=== PATIENT | female | born 1950 | race African-American/Black ===

== ENCOUNTER 2017-09-11 12:00 | Emergency (ER) | payer MEDICARE ==
[~2017-09-11] VITALS: Ht 154.9 cm; Wt 45.4 kg
[2017-09-11] MEDS ORDERED: ONDANSETRON PF 4 MG/2 ML VIAL. IV ONE (12:30)
[2017-09-11] MEDS ORDERED: fentaNYL PF VIAL 100 MCG/2 ML VIAL IV PRN (12:30)
[2017-09-11] MEDS ORDERED: IV NORMAL SALINE 500ML BAG 500 ML IV ONE (12:30)
--- NOTE | 2017-09-11 12:34 | PHYS DOC ---
Past Medical History Past Medical History: Asthma, GERD, Other Additional Past Medical Histor: muscle pain, interstitial cystitis Past Surgical History: Hysterectomy, Tubal ligation, Other Additional Past Surgical Histo: rectocele, "bladder stretched" Alcohol Use: Heavy Drug Use: None Adult General Chief Complaint Chief Complaint: ABDOMINAL PAIN HPI HPI Patient is a 67 year old female who presents with abdominal pain. The patient reports 5 day history of generalized cramping abdominal pain worst in lower quadrants. She reports associated frequent loose stools, nausea, belching, dysuria. Denies fevers/chills, hematemesis, hematochezia/melena, hematuria. She denies previous history of similar symptoms. History of prior surgery for rectocele repair. Also has history of GERD & interstitial cystitis. PCP is Dr. Carney. Review of Systems Review of Systems Constitutional: Denies fever or chills Eyes: Denies change in visual acuity HENT: Denies nasal congestion or sore throat Respiratory: Denies cough or shortness of breath Cardiovascular: Denies chest pain or edema GI: Reports abdominal pain, nausea, and diarrhea, denies vomiting, bloody stools : [place] dysuria, denies hematuria Musculoskeletal: Denies back pain or joint pain Integument: Denies rash or skin lesions Neurologic: Denies headache, focal weakness or sensory changes All other systems were reviewed and found to be within normal limits, except as documented in this note. Current Medications Current Medications Current Medications Medications (Trade) Dose Ordered Sig/Mikie Start Time Stop Time Status Last Admin Dose Admin Fentanyl Citrate (Fentanyl 2ml Vial) 25 mcg PRN Q15MIN PRN 09/11/17 12:30 09/11/17 14:54 DC Info (Do NOT chart on this entry -- for MONITORING) 1 each PRN DAILY PRN 09/11/17 13:45 09/11/17 14:54 DC Iohexol (Omnipaque 300 Mg/ml) 75 ml 1X ONCE 09/11/17 13:45 09/11/17 13:46 DC 09/11/17 13:43 75 ML Ketorolac Tromethamine (Toradol) 15 mg 1X ONCE 09/11/17 14:00 09/11/17 14:01 DC 09/11/17 13:52 15 MG Ondansetron HCl (Zofran) 4 mg 1X ONCE 09/11/17 12:30 09/11/17 12:45 DC 09/11/17 12:48 4 MG Sodium Chloride 500 ml @ 0 mls/hr 1X ONCE 09/11/17 12:30 09/11/17 12:45 DC 09/11/17 12:49 500 MLS/HR Allergies Allergies Allergies Coded Allergies Type Severity Reaction Last Updated Verified levofloxacin Allergy Intermediate Nausea and Vomiting 09/11/17 Yes Physical Exam Physical Exam Constitutional: Well developed, well nourished, no acute distress, non-toxic appearance. HENT: Normocephalic, atraumatic, bilateral external ears normal, oropharynx moist, nose normal. Eyes: PERRLA, EOMI, conjunctiva normal, no discharge. Neck: supple, no stridor. Cardiovascular: RRR, no murmurs, no edema. Lungs & Thorax: LCTAB, no wheezing, no respiratory distress. Abdomen: soft, moderate generalized tenderness greatest in RLQ & LLQ, no rebound /guarding, no masses or pulsatile masses, nondistended. Skin: Warm, dry, no erythema, no rash. Back: No CVA tenderness. Extremities: No tenderness, no edema. Neurologic: Alert and oriented X 3, no focal deficits noted. Psychologic: Affect normal, judgement normal, mood normal. Current Patient Data Vital Signs Vital Signs Date Time Temp Pulse Resp B/P (MAP) Pulse Ox O2 Delivery O2 Flow Rate FiO2 09/11/17 14:20 62 16 116/66 (83) 100 Room Air 09/11/17 12:20 98.7 98.7 Lab Values Laboratory Tests Test 09/11/17 12:35 White Blood Count 3.7 x10^3/uL (4.0-11.0) L Red Blood Count 4.31 x10^6/uL (3.50-5.40) Hemoglobin 11.8 g/dL (12.0-15.5) L Hematocrit 37.6 % (36.0-47.0) Mean Corpuscular Volume 87 fL (79-100) Mean Corpuscular Hemoglobin 27 pg (25-35) Mean Corpuscular Hemoglobin Concent 31 g/dL (31-37) Red Cell Distribution Width 14.2 % (11.5-14.5) Platelet Count 204 x10^3/uL (140-400) Neutrophils (%) (Auto) 52 % (31-73) Lymphocytes (%) (Auto) 37 % (24-48) Monocytes (%) (Auto) 9 % (0-9) Eosinophils (%) (Auto) 1 % (0-3) Basophils (%) (Auto) 1 % (0-3) Neutrophils # (Auto) 1.9 x10^3uL (1.8-7.7) Lymphocytes # (Auto) 1.4 x10^3/uL (1.0-4.8) Monocytes # (Auto) 0.3 x10^3/uL (0.0-1.1) Eosinophils # (Auto) 0.0 x10^3/uL (0.0-0.7) Basophils # (Auto) 0.0 x10^3/uL (0.0-0.2) Urine Collection Type Unknown Urine Color Zora Urine Clarity Clear Urine pH 6.5 Urine Specific [place] 1.015 Urine Protein Negative mg/dL (NEG-TRACE) Urine Glucose (UA) Negative mg/dL (NEG) Urine Ketones (Stick) Negative mg/dL (NEG) Urine Blood Negative (NEG) Urine Nitrite Negative (NEG) Urine Bilirubin Negative (NEG) Urine Urobilinogen Dipstick 0.2 mg/dL (0.2 mg/dL) Urine Leukocyte Esterase Trace (NEG) Urine RBC 0 /HPF (0-2) Urine WBC 0 /HPF (0-4) Urine Squamous Epithelial Cells Few /LPF Urine Bacteria 0 /HPF (0-FEW) Urine Mucus Slight /LPF Sodium Level 143 mmol/L (136-145) Potassium Level 4.1 mmol/L (3.5-5.1) Chloride Level 106 mmol/L (98-107) Carbon Dioxide Level 27 mmol/L (21-32) Anion Gap 10 (6-14) Blood Urea Nitrogen 10 mg/dL (7-20) Creatinine 0.7 mg/dL (0.6-1.0) Estimated GFR (Cockcroft-Gault) 84.0 BUN/Creatinine Ratio 14 (6-20) Glucose Level 102 mg/dL (70-99) H Lactic Acid Level 1.8 mmol/L (0.4-2.0) Calcium Level 8.8 mg/dL (8.5-10.1) Magnesium Level 1.8 mg/dL (1.8-2.4) Total Bilirubin 0.2 mg/dL (0.2-1.0) Aspartate Amino Transferase (AST) 18 U/L (15-37) Alanine Aminotransferase (ALT) 16 U/L (14-59) Alkaline Phosphatase 50 U/L (46-116) Troponin I Quantitative < 0.017 ng/mL (0.000-0.055) Total Protein 6.9 g/dL (6.4-8.2) Albumin 3.4 g/dL (3.4-5.0) Albumin/Globulin Ratio 1.0 (1.0-1.7) Lipase 136 U/L (73-393) Laboratory Tests 09/11/17 12:35 Laboratory Tests 09/11/17 12:35 EKG EKG interpreted by me: NSR rate 67, no acute St/T wave changes, normal intervals, no ectopy.[] Radiology/Procedures Radiology/Procedures PROCEDURE: CT ABD PELV W/ IV CONTRST ONLY EXAM: CT abdomen/pelvis with contrast. HISTORY: Abdominal pain and diarrhea. TECHNIQUE: Computed tomography of the abdomen and pelvis was performed after the intravenous administration of 75 mL Omnipaque 300. COMPARISON: 11/25/2007. FINDINGS: Lung windows through the visualized portions of the bases reveal mild atelectasis. Bone windows reveal no suspicious lesions. The lack of oral contrast and minimal intra-abdominal fat limits assessment of the small and large bowel. Wall thickening is suspected along the sigmoid colon suggesting colitis. More proximally, stool throughout the colon suggests mild constipation. No definitive small bowel wall thickening is seen. The liver, gallbladder, pancreas, kidneys and adrenal glands are unremarkable. There is a calcified granuloma in the spleen. There are no pathologically enlarged lymph nodes. The uterus appears surgically absent. IMPRESSION: 1. Limited assessment of the bowel in the absence of oral contrast and cachexia. Sigmoid colonic wall thickening is suspected. Correlate for colitis. Also correlate with current colonoscopic results to exclude a mass. *One or more of the following individualized dose reduction techniques were utilized for this examination: 1. Automated exposure control. 2. Adjustment of the mA and/or kV according to patient size. 3. Use of iterative reconstruction technique. DICTATED and SIGNED BY: JEANNE PARDO MD DATE: 09/11/17 4009[] Course & Med Decision Making Course & Med Decision Making Pertinent Labs and Imaging studies reviewed. (See chart for details) The patient presents with abdominal pain. Gave IV fluids, Zofran, pain medication. She felt better after treatment here. Labs as above without significant abnormality. CT showed thickening of the wall of the colon. She felt better and requested discharge home. Recommend rest, by mouth hydration with small sips of clear liquid, Zofran as needed for nausea, prescription for Bactrim and Flagyl for possible infectious colitis. Follow-up with primary care or GI in 2-3 days. Return to the emergency department for high fever, severe pain, uncontrolled vomiting, any otherwise worsening condition. Discharged home in stable condition. [] Dragon Disclaimer Dragon Disclaimer This electronic medical record was generated, in whole or in part, using a voice recognition dictation system. Departure Departure Impression: Primary Impression: Abdominal pain Disposition: HOME, SELF-CARE Condition: STABLE Referrals: LIANG CARNEY MD (PCP) Patient Instructions: Colitis Additional Instructions: You were seen in the emergency department today for abdominal pain. Your CT showed inflammation/infection of the colon. Please rest, drink fluids to stay hydrated, use zofran for nausea. Take prescribed antibiotics. Follow up with a primary care physician or GI doctor in 2-3 days. Come back for high fever, severe pain, uncontrolled vomiting, any otherwise worsening condition. Scripts Ondansetron (ZOFRAN ODT) 4 Mg Tab.rapdis 1 TAB SL Q8HRS Y for NAUSEA/VOMITING, #10 TAB Prov: EUSEBIO MARK MD 09/11/17 Metronidazole (FLAGYL) 500 Mg Tablet 1 TAB PO TID for 7 Days, #21 TAB Prov: EUSEBIO MARK MD 09/11/17 Sulfamethoxazole/Trimethoprim (BACTRIM DS TABLET) 1 Each Tablet 1 TAB PO BID, #14 TAB Prov: EUSEBIO MARK MD 09/11/17 EUSEBIO MARK MD Sep 11, 2017 12:34
[2017-09-11 12:48] LABS: BILIRUBIN,URINE NEGATIVE (NEG); GLUCOSE,URINE NEGATIVE (NEG); NITRITE,URINE NEGATIVE (NEG); PH,URINE 6.5; PROTEIN,URINE NEGATIVE (NEG-TRACE); UROBILINOGEN,URINE 0.2 mg/dL (0.2 mg/dL)
[2017-09-11 12:57] LABS: BACTERIA,URINE 0 /HPF (0-FEW); RBC,URINE 0 /HPF (0-2); SQUAMOUS EPITHELIAL CELL,UR FEW /LPF; WBC,URINE 0 /HPF (0-4)
[2017-09-11 13:03] LABS: BASO % 1 % (0-3); EOS % 1 % (0-3); HEMATOCRIT 37.6 % (36.0-47.0); HEMOGLOBIN 11.8 g/dL (12.0-15.5); LYMPH # 1.4 x10^3/uL (1.0-4.8); LYMPH % 37 % (24-48); MEAN CORPUSCULAR HEMOGLOBIN 27 pg (25-35); MEAN CORPUSCULAR HGB CONC 31 g/dL (31-37); MEAN CORPUSCULAR VOLUME 87 fL (79-100); MONO % 9 % (0-9); NEUT % 52 % (31-73); PLATELET COUNT 204 x10^3/uL (140-400); RED BLOOD COUNT 4.31 x10^6/uL (3.50-5.40); RED CELL DISTRIBUTION WIDTH 14.2 % (11.5-14.5); WHITE BLOOD COUNT 3.7 x10^3/uL (4.0-11.0)
[2017-09-11 13:09] LABS: CALCIUM 8.8 mg/dL (8.5-10.1); CREATININE 0.7 mg/dL (0.6-1.0); POTASSIUM 4.1 mmol/L (3.5-5.1)
[2017-09-11 13:21] LABS: ALBUMIN 3.4 g/dL (3.4-5.0); MAGNESIUM 1.8 mg/dL (1.8-2.4); TOTAL BILIRUBIN 0.2 mg/dL (0.2-1.0); TOTAL PROTEIN 6.9 g/dL (6.4-8.2)
[2017-09-11] MEDS ORDERED: IOHEXOL 300 MG/ML 100ML VIAL. IV ONE (13:45)
[2017-09-11] MEDS ORDERED: CONTRAST GIVEN MC PRN (13:45)
[2017-09-11] MEDS ORDERED: KETOROLAC 30 MG/ML INJ. IV ONE (14:00)
--- NOTE | 2017-09-11 14:03 | EKG ---
[facility] [address] [place] [address] Test Date: 2017-09-11 Test Time: 12:36:52 Pat Name: MICHA AUGUSTE Department: Room: Gender: F Superintendent [place]: 0 : 1950 Requested By: EUSEBIO MARK Order Number: [id number] Reading MD: Vadim Schmitz MD Measurements Intervals [place] Rate: 66 P: 68 MI: 160 QRS: 33 QRSD: 66 T: 42 QT: 408 QTc: 434 Interpretive Statements SINUS RHYTHM LOW LIMB LEAD VOLTAGE NON-SPECIFIC ST/T CHANGES Electronically Signed On 09-15-2017 10:42:41 BRAND RECORDER by Vadim Schmitz MD
--- NOTE | 2017-09-11 14:18 | RAD ---
EXAM: CT abdomen/pelvis with contrast. HISTORY: Abdominal pain and diarrhea. TECHNIQUE: Computed tomography of the abdomen and pelvis was performed after the intravenous administration of 75 mL Omnipaque 300. COMPARISON: 11/25/2007. FINDINGS: Lung windows through the visualized portions of the bases reveal mild atelectasis. Bone windows reveal no suspicious lesions. The lack of oral contrast and minimal intra-abdominal fat limits assessment of the small and large bowel. Wall thickening is suspected along the sigmoid colon suggesting colitis. More proximally, stool throughout the colon suggests mild constipation. No definitive small bowel wall thickening is seen. The liver, gallbladder, pancreas, kidneys and adrenal glands are unremarkable. There is a calcified granuloma in the spleen. There are no pathologically enlarged lymph nodes. The uterus appears surgically absent. IMPRESSION: 1. Limited assessment of the bowel in the absence of oral contrast and cachexia. Sigmoid colonic wall thickening is suspected. Correlate for colitis. Also correlate with current colonoscopic results to exclude a mass. *One or more of the following individualized dose reduction techniques were utilized for this examination: 1. Automated exposure control. 2. Adjustment of the mA and/or kV according to patient size. 3. Use of iterative reconstruction technique.
[2017-09-11 14:20] VITALS: BP 116/66
[2017-09-11] MEDS ORDERED: METR500T PO (14:38)
[2017-09-11] MEDS ORDERED: SULF1TAB24 PO (14:38)
[2017-09-11] MEDS ORDERED: ONDA4TAB10 SL (14:38)
== END 2017-09-11 14:43 | disposition home or self-care (01) ==
LOC: ER 12:00
DX: R10.31 Right lower quadrant pain (principal); R10.32 Left lower quadrant pain; K21.9 Gastro-esophageal reflux disease without esophagitis; J45.909 Unspecified asthma, uncomplicated; Z98.51 Tubal ligation status; Z90.710 Acquired absence of both cervix and uterus; Z88.1 Allergy status to other antibiotic agents
CPT/HCPCS: 36415; 74177; 80053; 81001; 83605; 83690; 83735; 84484; 85025; 87086; 93005; 96361; 96374; 96375; 99285; J1885; J2405; J7040; Q9967

== ENCOUNTER 2017-09-17 19:31 | Inpatient (IN) | payer MEDICARE ==
[~2017-09-17] VITALS: Ht 154.9 cm; Wt 42.6 kg
[~2017-09-17 19:31] MED LIST: METR500T PO; ONDA4TAB10 SL; SULF1TAB24 PO
[2017-09-17 20:26] LABS: BASO % 1 % (0-3); EOS % 1 % (0-3); HEMATOCRIT 35.3 % (36.0-47.0); HEMOGLOBIN 11.1 g/dL (12.0-15.5); LYMPH # 1.7 x10^3/uL (1.0-4.8); LYMPH % 42 % (24-48); MEAN CORPUSCULAR HEMOGLOBIN 27 pg (25-35); MEAN CORPUSCULAR HGB CONC 32 g/dL (31-37); MEAN CORPUSCULAR VOLUME 87 fL (79-100); MONO % 8 % (0-9); NEUT % 49 % (31-73); PLATELET COUNT 206 x10^3/uL (140-400); RED BLOOD COUNT 4.06 x10^6/uL (3.50-5.40)
[2017-09-17 20:27] LABS: BILIRUBIN,URINE NEGATIVE (NEG); GLUCOSE,URINE NEGATIVE (NEG); NITRITE,URINE POSITIVE (NEG); PH,URINE 6.5; PROTEIN,URINE NEGATIVE (NEG-TRACE); UROBILINOGEN,URINE 0.2 mg/dL (0.2 mg/dL)
[2017-09-17 20:33] LABS: BACTERIA,URINE FEW /HPF (0-FEW); RBC,URINE OCC /HPF (0-2); SQUAMOUS EPITHELIAL CELL,UR FEW /LPF; WBC,URINE OCC /HPF (0-4)
[2017-09-17 20:40] LABS: CREATININE 0.8 mg/dL (0.6-1.0); GFR 87.1; POTASSIUM 3.8 mmol/L (3.5-5.1)
[2017-09-17 20:51] LABS: ALBUMIN 3.6 g/dL (3.4-5.0); ALBUMIN/GLOBULIN RATIO 0.9 (1.0-1.7); TOTAL BILIRUBIN 0.3 mg/dL (0.2-1.0); TOTAL PROTEIN 7.4 g/dL (6.4-8.2)
--- NOTE | 2017-09-17 20:56 | PHYS DOC ---
Past Medical History Past Medical History: Asthma, GERD, Other Additional Past Medical Histor: muscle pain, interstitial cystitis Past Surgical History: Hysterectomy, Tubal ligation, Other Additional Past Surgical Histo: rectocele, "bladder stretched" Alcohol Use: Heavy Drug Use: None Adult General Chief Complaint Chief Complaint: ABDOMINAL PAIN HPI HPI Patient is a 67 year old F who presents with right lower quadrant abdominal pain. Patient was seen last for somewhere symptoms had a full workup done including a CT scan and everything was unremarkable and was discharged home. Patient followed up with her family doctor today and he felt the patient had rebound tenderness to the right lower quadrant and wanted the patient reevaluated and wanted the patient have another CT scan of the abdomen and pelvis to rule out appendicitis. Patient denies any fevers. Patient has nausea with no vomiting. Patient does have dysuria. Patient has no other symptoms. Review of Systems Review of Systems GEN: Denies fevers, chills, sweats HEENT: Denies blurred vision, sore throat CV: Denies chest pain RESP: Denies shortness of air, cough GI: Right lower quadrant abdominal pain NEURO: Denies confusion, dizziness MSK: Denies weakness, joint pain/swelling All other systems were reviewed and found to be within normal limits, except as documented in this note. Current Medications Current Medications Current Medications Medications (Trade) Dose Ordered Sig/Mikie Start Time Stop Time Status Last Admin Dose Admin Info (Do NOT chart on this entry -- for MONITORING) 1 each PRN DAILY PRN 09/17/17 21:00 09/19/17 20:59 Iohexol (Omnipaque 300 Mg/ml) 75 ml 1X ONCE 09/17/17 21:00 09/17/17 21:01 DC 09/17/17 21:14 75 ML Allergies Allergies Allergies Coded Allergies Type Severity Reaction Last Updated Verified levofloxacin Allergy Intermediate Nausea and Vomiting 09/11/17 Yes Physical Exam Physical Exam GEN.: No apparent distress. Alert and oriented. HEENT: Head is normocephalic, atraumatic NECK: Supple. LUNGS: CTAB. HEART: RRR, S1, S2 present. Peripheral pulses intact ABDOMEN: Soft, right lower quadrant tenderness to palpation, with rebound tenderness, voluntary guarding, no abdominal distention. Positive bowel sounds. EXTREMITIES: Without any cyanosis. NEUROLOGIC: Normal speech, normal tone PSYCHIATRIC: Normal affect, normal mood. SKIN: No ulcerations Current Patient Data Vital Signs Vital Signs Date Time Temp Pulse Resp B/P (MAP) Pulse Ox O2 Delivery O2 Flow Rate FiO2 09/17/17 20:00 98.4 66 16 103/58 (73) 97 Room Air 98.4 Lab Values Laboratory Tests Test 09/17/17 19:41 09/17/17 19:58 Urine Collection Type Unknown Urine Color Zora Urine Clarity Clear Urine pH 6.5 Urine Specific [place] 1.010 Urine Protein Negative mg/dL (NEG-TRACE) Urine Glucose (UA) Negative mg/dL (NEG) Urine Ketones (Stick) Negative mg/dL (NEG) Urine Blood Negative (NEG) Urine Nitrite Positive (NEG) Urine Bilirubin Negative (NEG) Urine Urobilinogen Dipstick 0.2 mg/dL (0.2 mg/dL) Urine Leukocyte Esterase Negative (NEG) Urine RBC Occ /HPF (0-2) Urine WBC Occ /HPF (0-4) Urine Squamous Epithelial Cells Few /LPF Urine Bacteria Few /HPF (0-FEW) Urine Mucus Slight /LPF White Blood Count 4.0 x10^3/uL (4.0-11.0) Red Blood Count 4.06 x10^6/uL (3.50-5.40) Hemoglobin 11.1 g/dL (12.0-15.5) L Hematocrit 35.3 % (36.0-47.0) L Mean Corpuscular Volume 87 fL (79-100) Mean Corpuscular Hemoglobin 27 pg (25-35) Mean Corpuscular Hemoglobin Concent 32 g/dL (31-37) Red Cell Distribution Width 14.0 % (11.5-14.5) Platelet Count 206 x10^3/uL (140-400) Neutrophils (%) (Auto) 49 % (31-73) Lymphocytes (%) (Auto) 42 % (24-48) Monocytes (%) (Auto) 8 % (0-9) Eosinophils (%) (Auto) 1 % (0-3) Basophils (%) (Auto) 1 % (0-3) Neutrophils # (Auto) 2.0 x10^3uL (1.8-7.7) Lymphocytes # (Auto) 1.7 x10^3/uL (1.0-4.8) Monocytes # (Auto) 0.3 x10^3/uL (0.0-1.1) Eosinophils # (Auto) 0.1 x10^3/uL (0.0-0.7) Basophils # (Auto) 0.0 x10^3/uL (0.0-0.2) Sodium Level 140 mmol/L (136-145) Potassium Level 3.8 mmol/L (3.5-5.1) Chloride Level 104 mmol/L (98-107) Carbon Dioxide Level 30 mmol/L (21-32) Anion Gap 6 (6-14) Blood Urea Nitrogen 15 mg/dL (7-20) Creatinine 0.8 mg/dL (0.6-1.0) Estimated GFR (Cockcroft-Gault) 87.1 BUN/Creatinine Ratio 19 (6-20) Glucose Level 91 mg/dL (70-99) Lactic Acid Level 0.9 mmol/L (0.4-2.0) Calcium Level 9.0 mg/dL (8.5-10.1) Total Bilirubin 0.3 mg/dL (0.2-1.0) Aspartate Amino Transferase (AST) 22 U/L (15-37) Alanine Aminotransferase (ALT) 26 U/L (14-59) Alkaline Phosphatase 46 U/L (46-116) Total Protein 7.4 g/dL (6.4-8.2) Albumin 3.6 g/dL (3.4-5.0) Albumin/Globulin Ratio 0.9 (1.0-1.7) L Lipase 150 U/L (73-393) Laboratory Tests 09/17/17 19:58 Laboratory Tests 09/17/17 19:58 EKG EKG [] Radiology/Procedures Radiology/Procedures CT scan abdomen pelvis: IMPRESSION: 1. No acute abnormality of abdomen or pelvis. The appendix is partially visualized. No inflammatory changes in the right lower quadrant. 2. Trace amount of free pelvic fluid, nonspecific. 3. Status post hysterectomy. [] Course & Med Decision Making Course & Med Decision Making Pertinent Labs and Imaging studies reviewed. (See chart for details) ED course: Prior to patient's arrival in the emergency room received a phone call from patient's fish header Dr. Patel who is concerned that after evaluating her today she had increasing right lower quadrant tenderness with rebound tenderness and was concerned for acute appendicitis. Patient was seen and examined emergency room abdominal workup was ordered along with a CT of the abdomen and pelvis with contrast 1929: called back and updated on the patient, updated him on results of blood work and physical exam findings and awaiting CT. He stressed he wanted the patient admitted to rule out appendicitis and did not fill the patient could go home with his persistent abdominal pain. 2149: Updated patient on CT findings and UA results and reexamine. Patient still having significant right lower quadrant pain will admit for further evaluation and management 2205: Discussed CC/HP/PMH with Dr. MCGARRY and recommends admit surgery on consult MDM: After reviewing the chart, CC/HPI/PMH, physical exam, [lab results], [ radiological results], I do not believe the patient has a intra-abdominal emergency warranting emergent surgery at this time however since the patient's having intractable right lower quadrant pain and is seen twice in the emergency room and followed up with her fish header we will admit for further evaluation and management. Patient does have a UTI will start IV ecchymotic. [] Dragon Disclaimer Dragon Disclaimer This electronic medical record was generated, in whole or in part, using a voice recognition dictation system. Departure Departure Impression: Primary Impression: UTI (urinary tract infection) Additional Impression: Intractable abdominal pain Disposition: ADMITTED INPATIENT Admitting Physician: Terrell Mcgarry Condition: STABLE Referrals: LIANG CARNEY MD (PCP) Problem Qualifiers KATARINA LORD DO Sep 17, 2017 20:56
[2017-09-17] MEDS ORDERED: CONTRAST GIVEN MC PRN (21:00)
[2017-09-17] MEDS ORDERED: IOHEXOL 300 MG/ML 100ML VIAL. IV ONE (21:00)
--- NOTE | 2017-09-17 21:35 | RAD ---
CT ABD PELV W/ IV CONTRST ONLY dated 09/17/2017 9:13 PM Indication: Pain, right lower quadrantsevere RLQ pain, [id number] 75ml, prior sent from last week. Comparison: 09/11/2017 Technique: Contiguous axial imaging of the abdomen and pelvis performed after the administration of 75 cc Omnipaque 300. One or more of the following individualized dose reduction techniques were utilized for this examination: 1. Automated exposure control 2. Adjustment of the mA and/or kV according to patient size 3. Use of iterative reconstruction technique Findings: Limited images of lung bases are clear. Heart size within normal limits. No pleural or pericardial effusion. Liver, spleen, pancreas, adrenal glands, gallbladder and kidneys are unremarkable. No hydronephrosis. Unopacified GI tract normal in caliber and contour. No focal bowel wall thickening. The appendix is partially visualized and normal in caliber. No lymphadenopathy. Images of pelvis show nondistended urinary bladder. Uterus is surgically absent. Small amount of free pelvic fluid. No pelvic lymphadenopathy. Bone windows show no acute findings. Mild lower lumbar spondylosis. IMPRESSION: 1. No acute abnormality of abdomen or pelvis. The appendix is partially visualized. No inflammatory changes in the right lower quadrant. 2. Trace amount of free pelvic fluid, nonspecific. 3. Status post hysterectomy. Electronically signed by: Roderick Rosario MD (09/17/2017 9:32 PM) [id number]
[2017-09-17] MEDS: IV NORMAL SALINE 1000ML BAG 1,000 ML IV SCH (22:40)
[2017-09-17] MEDS: ONDANSETRON PF 4 MG/2 ML VIAL. IV PRN (22:43)
[2017-09-17] MEDS: MORPHINE SULFATE 4 MG/ML DISP.SYRIN. IV PRN (22:44)
[2017-09-18] VITALS (7 sets, daily range): BP systolic 94–127; BP diastolic 60–72
[2017-09-18] MEDS: PHENAZOPYRIDINE 200 MG TABLET. PO PRN ×2 (00:22→09:46)
[2017-09-18] MEDS ORDERED: TIZA4TAB PO (05:27)
[2017-09-18] MEDS ORDERED: POLY17PO29 PO (05:27)
[2017-09-18] MEDS ORDERED: TRAM50TA PO (05:27)
[2017-09-18] MEDS ORDERED: OMEP40CA5 PO (05:27)
[2017-09-18] MEDS ORDERED: HYOS0.3715 PO (05:27)
[2017-09-18] MEDS ORDERED: RANI300T3 PO (05:27)
[2017-09-18] MEDS ORDERED: OXYB10TA7 PO (05:27)
[2017-09-18] MEDS ORDERED: PHEN-318 PO (05:27)
[2017-09-18 05:34] LABS: BASO % 1 % (0-3); EOS % 2 % (0-3); HEMATOCRIT 33.5 % (36.0-47.0); HEMOGLOBIN 10.6 g/dL (12.0-15.5); LYMPH % 47 % (24-48); MEAN CORPUSCULAR HEMOGLOBIN 28 pg (25-35); MEAN CORPUSCULAR HGB CONC 32 g/dL (31-37); MEAN CORPUSCULAR VOLUME 87 fL (79-100); MONO % 8 % (0-9); NEUT % 43 % (31-73); PLATELET COUNT 195 x10^3/uL (140-400); RED BLOOD COUNT 3.85 x10^6/uL (3.50-5.40); RED CELL DISTRIBUTION WIDTH 13.9 % (11.5-14.5); WHITE BLOOD COUNT 4.2 x10^3/uL (4.0-11.0)
[2017-09-18 06:13] LABS: CALCIUM 8.4 mg/dL (8.5-10.1); CREATININE 0.7 mg/dL (0.6-1.0); GFR 101.6; POTASSIUM 3.9 mmol/L (3.5-5.1)
[2017-09-18] MEDS: MORPHINE SULFATE 4 MG/ML DISP.SYRIN. IV PRN (09:47)
[2017-09-18] MEDS: IV NORMAL SALINE 1000ML BAG 1,000 ML IV SCH (09:47)
[2017-09-18] MEDS: ONDANSETRON PF 4 MG/2 ML VIAL. IV PRN (09:56)
[2017-09-18] MEDS ORDERED: BISACODYL 10 MG SUPP.RECT. PR PRN (12:00)
[2017-09-18] MEDS ORDERED: POLYETHYLENE GLYCOL 3350 17 GM PACKET. PO PRN (12:00)
[2017-09-18] MEDS ORDERED: hydrALAZINE 20 MG/ML VIAL. IVP PRN (12:00)
[2017-09-18] MEDS ORDERED: traMADol 50 MG TABLET PO PRN (12:00)
[2017-09-18] MEDS ORDERED: ONDANSETRON PF 4 MG/2 ML VIAL. IV PRN (12:00)
[2017-09-18] MEDS ORDERED: MORPHINE SULFATE 4 MG/ML DISP.SYRIN. IV PRN (12:00)
[2017-09-18] MEDS ORDERED: ACETAMINOPHEN 325 MG TABLET. PO PRN (12:00)
[2017-09-18] MEDS ORDERED: LACTULOSE 20 GM/30 ML SOLUTION. PO PRN (12:00)
[2017-09-18] MEDS ORDERED: DOCUSATE SODIUM 100 MG CAPSULE. PO PRN (12:00)
--- NOTE | 2017-09-18 12:17 | PDOC2 ---
MATTEO VIZCAINO BRIDGE OPERATOR SLIP 09/18/17 1217: CONSULT Date of Consult Date of Consult DATE: 09/18/17 TIME: 12:09 Reason for Consult Reason for Consult: abdominal pain Referring Physician Referring Physician: ER Identification/Chief Complaint Chief Complaint abdominal pain Problems: Source Source: Chart review, Patient History of Present Illness Reason for Visit: Reports started last with gas pain after [place]. Then developed diarrhea for 2 days, became dehydrated--treated in ER for colitis/UTI. Developed worsening cramping lower abdominal pain. Currently still having pain , no n/v, no further diarrhea Last colonoscopy 2 years ago , normal Past Medical History Pulmonary: Asthma GI: GERD Past Surgical History Past Surgical History: Hysterectomy (partial), Other (rectocele repair) Social History No ALCOHOL: heavy Drugs: None Current Problem List Problem List Problems Medical Problems: (1) Intractable abdominal pain Status: Acute (2) UTI (urinary tract infection) Status: Acute Current Medications Current Medications Current Medications Iohexol (Omnipaque 300 Mg/ml) 75 ml 1X ONCE IV Last administered on 21:14; Start 09/17/17 at 21:00; Stop 09/17/17 at 21:01; Status DC Info (Do NOT chart on this entry -- for MONITORING) 1 each PRN DAILY PRN MC SEE COMMENTS; Start 09/17/17 at 21:00; Stop 09/19/17 at 20:59 Ceftriaxone Sodium 50 ml @ 100 mls/hr 1X ONCE IV Last administered on 22:40; Start 09/17/17 at 22:00; Stop 09/17/17 at 22:29; Status DC Ondansetron HCl (Zofran) 4 mg PRN Q8HRS PRN IV NAUSEA/VOMITING Last administered on 09/18/17 09:56; Start 09/17/17 at 22:15; Stop 09/18/17 at 22 :14 Morphine Sulfate 4 mg PRN Q2HR PRN IV PAIN Last administered on 09/18/17 09: 47; Start 09/17/17 at 22:15; Stop 09/18/17 at 22:14 Sodium Chloride 1,000 ml @ 75 mls/hr [id number] IV Last administered on 09:47; Start 09/17/17 at 22:15; Stop 09/18/17 at 22:14 Phenazopyridine HCl (Pyridium) 200 mg PRN TID PRN PO URINARY PAIN Last administered on 09/18/17t 09:46; Start 09/17/17 at 23:45 Hyoscyamine (Levbid Er) 0.1875 mg BID PO ; Start 09/18/17 at 21:00 Phenazopyridine HCl (Pyridium) 200 mg BID PO ; Start 09/18/17 at 21:00; Status UNV Polyethylene Glycol (miraLAX PACKET) 17 gm PRN DAILY PRN PO CONSTIPATION; Start 09/18/17 at 12:00 Tizanidine HCl (Zanaflex) 4 mg QID PO ; Start 09/18/17 at 13:00 Tramadol HCl (Ultram) 100 mg QID PO ; Start 09/18/17 at 13:00 Pantoprazole Sodium (Protonix) 40 mg DAILYAC PO ; Start 09/19/17 at 07:30 Non-Formulary Medication 1 tab DAILY PO ; Start 09/19/17 at 09:00; Status UNV Simethicone (Gas-X) 80 mg PRN AFTMEALHC PRN PO GAS / BLOATING; Start 09/18/17 at 12:00 Acetaminophen (Tylenol) 650 mg PRN Q6HRS PRN PO FEVER; Start 09/18/17 at 12:00 Ondansetron HCl (Zofran) 4 mg PRN Q6HRS PRN IV NAUSEA/VOMITING; Start at 12:00 Morphine Sulfate 2 mg PRN Q2HR PRN IV PAIN; Start 09/18/17 at 12:00 Tramadol HCl (Ultram) 50 mg PRN Q6HRS PRN PO PAIN; Start 09/18/17 at 12:00; Status UNV Hydralazine HCl (Apresoline Inj) 10 mg PRN Q4HRS PRN IVP ELEVATED BP, SEE COMMENTS; Start 09/18/17 at 12:00 Docusate Sodium (Colace) 100 mg PRN DAILY PRN PO CONSTIPATION; Start 09/18/17 at 12:00 Ceftriaxone Sodium 1 gm/ Dextrose 50 ml @ 100 mls/hr Q24H IV ; Start 09/18/17 at 12:00; Status UNV Senna/Docusate Sodium (Senna Plus) 1 tab BID PO ; Start 09/18/17 at 21:00 Docusate Sodium (Colace) 100 mg BID PO ; Start 09/18/17 at 21:00 Magnesium Hydroxide (Milk Of Magnesia) 2,400 mg BID PO ; Start 09/18/17 at 21: 00 Lactulose 20 gm PRN Q12HR PRN PO CONSTIPATION; Start 09/18/17 at 12:00 Bisacodyl (Dulcolax Supp) 10 mg PRN DAILY PRN [place] CONSTIPATION; Start 09/18/17 at 12:00 Enoxaparin Sodium (Lovenox 30mg Syringe) 30 mg Q24H SQ ; Start 09/18/17 at 13: 00 Ceftriaxone Sodium (Rocephin) 1 gm Q24H IVP ; Start 09/18/17 at 21:00 Active Scripts Active Reported Levbid (Hyoscyamine Sulfate) 0.375 Mg Tab.er.12h 0.5 Tab PO BID Miralax (Polyethylene Glycol 3350) 17 Gm Powd.pack 1 Packet PO PRN DAILY PRN Ditropan Xl (Oxybutynin Chloride) 10 Mg Tab.er.24 1 Tab PO DAILY Zantac (Ranitidine Hcl) 300 Mg Tablet 1 Tab PO QHS Omeprazole 40 Mg Capsule.dr 1 Cap PO DAILY Tizanidine Hcl 4 Mg Tablet 1 Tab PO QID Tramadol Hcl 50 Mg Tablet 2 Tab PO QID Pyridium (Phenazopyridine Hcl) 200 Mg Tablet 200 Mg PO BID Allergies Allergies: Coded Allergies: levofloxacin (Verified Allergy, Intermediate, Nausea and Vomiting, 09/11/17 ) lactose (Verified Adverse Reaction, Severe, 09/18/17) Patient is lactose-intolerant ROS General: No: Chills, Other (fevers) PSYCHOLOGICAL ROS: No: Anxiety, Depression Eyes: No Blurry vision, No Double vision HEENT: No: Heacaches, Sore Throat Hematological and Lymphatic: No: Bleeding Problems, Blood Clots Respiratory: No: Cough, Shortness of breath Cardiovascular: No Chest Pain, No Palpitations Gastrointestinal: Yes Other (see hpi) Genitourinary: YES Dysuria, YES Retention Neurological: No Confusion, No Impaired Coord/balance Skin: No Pruritus, No Rash Physical Exam General: Alert, Oriented X3, Cooperative, No acute distress HEENT: PERRLA, Mucous membr. moist/pink Lungs: Clear to auscultation, Normal air movement Heart: Regular rate, Normal S1, Normal S2, No murmurs Abdomen: Soft, Other (ND, RLQ TTP, no gaurding or rebound) Extremities: No clubbing, No cyanosis Skin: No rashes, No breakdown Neuro: Normal gait, Normal speech Psych/Mental Status: Mental status NL, Mood NL MUSCULOSKELETAL: No deformity, No swelling Vitals VITALS Vital Signs Date Time Temp Pulse Resp B/P (MAP) Pulse Ox O2 Delivery O2 Flow Rate FiO2 09/18/17 11:00 99.5 58 18 112/71 (85) 99 Room Air 99.5 Labs Labs Laboratory Tests Test 09/17/17 19:41 09/17/17 19:58 09/18/17 03:40 Urine Collection Type Unknown Urine Color Zora Urine Clarity Clear Urine pH 6.5 Urine Specific [place] 1.010 Urine Protein Negative mg/dL (NEG-TRACE) Urine Glucose (UA) Negative mg/dL (NEG) Urine Ketones (Stick) Negative mg/dL (NEG) Urine Blood Negative (NEG) Urine Nitrite Positive (NEG) Urine Bilirubin Negative (NEG) Urine Urobilinogen Dipstick 0.2 mg/dL (0.2 mg/dL) Urine Leukocyte Esterase Negative (NEG) Urine RBC Occ /HPF (0-2) Urine WBC Occ /HPF (0-4) Urine Squamous Epithelial Cells Few /LPF Urine Bacteria Few /HPF (0-FEW) Urine Mucus Slight /LPF White Blood Count 4.0 x10^3/uL (4.0-11.0) 4.2 x10^3/uL (4.0-11.0) Red Blood Count 4.06 x10^6/uL (3.50-5.40) 3.85 x10^6/uL (3.50-5.40) Hemoglobin 11.1 g/dL (12.0-15.5) 10.6 g/dL (12.0-15.5) Hematocrit 35.3 % (36.0-47.0) 33.5 % (36.0-47.0) Mean Corpuscular Volume 87 fL (79-100) 87 fL (79-100) Mean Corpuscular Hemoglobin 27 pg (25-35) 28 pg (25-35) Mean Corpuscular Hemoglobin Concent 32 g/dL (31-37) 32 g/dL (31-37) Red Cell Distribution Width 14.0 % (11.5-14.5) 13.9 % (11.5-14.5) Platelet Count 206 x10^3/uL (140-400) 195 x10^3/uL (140-400) Neutrophils (%) (Auto) 49 % (31-73) 43 % (31-73) Lymphocytes (%) (Auto) 42 % (24-48) 47 % (24-48) Monocytes (%) (Auto) 8 % (0-9) 8 % (0-9) Eosinophils (%) (Auto) 1 % (0-3) 2 % (0-3) Basophils (%) (Auto) 1 % (0-3) 1 % (0-3) Neutrophils # (Auto) 2.0 x10^3uL (1.8-7.7) 1.8 x10^3uL (1.8-7.7) Lymphocytes # (Auto) 1.7 x10^3/uL (1.0-4.8) 2.0 x10^3/uL (1.0-4.8) Monocytes # (Auto) 0.3 x10^3/uL (0.0-1.1) 0.3 x10^3/uL (0.0-1.1) Eosinophils # (Auto) 0.1 x10^3/uL (0.0-0.7) 0.1 x10^3/uL (0.0-0.7) Basophils # (Auto) 0.0 x10^3/uL (0.0-0.2) 0.0 x10^3/uL (0.0-0.2) Sodium Level 140 mmol/L (136-145) 140 mmol/L (136-145) Potassium Level 3.8 mmol/L (3.5-5.1) 3.9 mmol/L (3.5-5.1) Chloride Level 104 mmol/L (98-107) 107 mmol/L (98-107) Carbon Dioxide Level 30 mmol/L (21-32) 29 mmol/L (21-32) Anion Gap 6 (6-14) 4 (6-14) Blood Urea Nitrogen 15 mg/dL (7-20) 11 mg/dL (7-20) Creatinine 0.8 mg/dL (0.6-1.0) 0.7 mg/dL (0.6-1.0) Estimated GFR (Cockcroft-Gault) 87.1 101.6 BUN/Creatinine Ratio 19 (6-20) Glucose Level 91 mg/dL (70-99) 85 mg/dL (70-99) Lactic Acid Level 0.9 mmol/L (0.4-2.0) Calcium Level 9.0 mg/dL (8.5-10.1) 8.4 mg/dL (8.5-10.1) Total Bilirubin 0.3 mg/dL (0.2-1.0) Aspartate Amino Transf (AST/SGOT) 22 U/L (15-37) Alanine Aminotransferase (ALT/SGPT) 26 U/L (14-59) Alkaline Phosphatase 46 U/L (46-116) Total Protein 7.4 g/dL (6.4-8.2) Albumin 3.6 g/dL (3.4-5.0) Albumin/Globulin Ratio 0.9 (1.0-1.7) Lipase 150 U/L (73-393) Laboratory Tests Test 09/17/17 19:41 09/17/17 19:58 09/18/17 03:40 Urine Collection Type Unknown Urine Color Zora Urine Clarity Clear Urine pH 6.5 Urine Specific [place] 1.010 Urine Protein Negative mg/dL (NEG-TRACE) Urine Glucose (UA) Negative mg/dL (NEG) Urine Ketones (Stick) Negative mg/dL (NEG) Urine Blood Negative (NEG) Urine Nitrite Positive (NEG) Urine Bilirubin Negative (NEG) Urine Urobilinogen Dipstick 0.2 mg/dL (0.2 mg/dL) Urine Leukocyte Esterase Negative (NEG) Urine RBC Occ /HPF (0-2) Urine WBC Occ /HPF (0-4) Urine Squamous Epithelial Cells Few /LPF Urine Bacteria Few /HPF (0-FEW) Urine Mucus Slight /LPF White Blood Count 4.0 x10^3/uL (4.0-11.0) 4.2 x10^3/uL (4.0-11.0) Red Blood Count 4.06 x10^6/uL (3.50-5.40) 3.85 x10^6/uL (3.50-5.40) Hemoglobin 11.1 g/dL (12.0-15.5) 10.6 g/dL (12.0-15.5) Hematocrit 35.3 % (36.0-47.0) 33.5 % (36.0-47.0) Mean Corpuscular Volume 87 fL (79-100) 87 fL (79-100) Mean Corpuscular Hemoglobin 27 pg (25-35) 28 pg (25-35) Mean Corpuscular Hemoglobin Concent 32 g/dL (31-37) 32 g/dL (31-37) Red Cell Distribution Width 14.0 % (11.5-14.5) 13.9 % (11.5-14.5) Platelet Count 206 x10^3/uL (140-400) 195 x10^3/uL (140-400) Neutrophils (%) (Auto) 49 % (31-73) 43 % (31-73) Lymphocytes (%) (Auto) 42 % (24-48) 47 % (24-48) Monocytes (%) (Auto) 8 % (0-9) 8 % (0-9) Eosinophils (%) (Auto) 1 % (0-3) 2 % (0-3) Basophils (%) (Auto) 1 % (0-3) 1 % (0-3) Neutrophils # (Auto) 2.0 x10^3uL (1.8-7.7) 1.8 x10^3uL (1.8-7.7) Lymphocytes # (Auto) 1.7 x10^3/uL (1.0-4.8) 2.0 x10^3/uL (1.0-4.8) Monocytes # (Auto) 0.3 x10^3/uL (0.0-1.1) 0.3 x10^3/uL (0.0-1.1) Eosinophils # (Auto) 0.1 x10^3/uL (0.0-0.7) 0.1 x10^3/uL (0.0-0.7) Basophils # (Auto) 0.0 x10^3/uL (0.0-0.2) 0.0 x10^3/uL (0.0-0.2) Sodium Level 140 mmol/L (136-145) 140 mmol/L (136-145) Potassium Level 3.8 mmol/L (3.5-5.1) 3.9 mmol/L (3.5-5.1) Chloride Level 104 mmol/L (98-107) 107 mmol/L (98-107) Carbon Dioxide Level 30 mmol/L (21-32) 29 mmol/L (21-32) Anion Gap 6 (6-14) 4 (6-14) Blood Urea Nitrogen 15 mg/dL (7-20) 11 mg/dL (7-20) Creatinine 0.8 mg/dL (0.6-1.0) 0.7 mg/dL (0.6-1.0) Estimated GFR (Cockcroft-Gault) 87.1 101.6 BUN/Creatinine Ratio 19 (6-20) Glucose Level 91 mg/dL (70-99) 85 mg/dL (70-99) Lactic Acid Level 0.9 mmol/L (0.4-2.0) Calcium Level 9.0 mg/dL (8.5-10.1) 8.4 mg/dL (8.5-10.1) Total Bilirubin 0.3 mg/dL (0.2-1.0) Aspartate Amino Transf (AST/SGOT) 22 U/L (15-37) Alanine Aminotransferase (ALT/SGPT) 26 U/L (14-59) Alkaline Phosphatase 46 U/L (46-116) Total Protein 7.4 g/dL (6.4-8.2) Albumin 3.6 g/dL (3.4-5.0) Albumin/Globulin Ratio 0.9 (1.0-1.7) Lipase 150 U/L (73-393) Assessment/Plan Assessment/Plan abdominal pain, findings of appendicitis on CT, normal WBC colitis last week, treated in ER UTI, + nitrate on UA observation, will consult GI to VERÓNICA Gamboa MD 09/18/17 1322: CONSULT Allergies Allergies: Coded Allergies: levofloxacin (Verified Allergy, Intermediate, Nausea and Vomiting, 09/11/17 ) lactose (Verified Adverse Reaction, Severe, 09/18/17) Patient is lactose-intolerant Assessment/Plan Assessment/Plan Pt seen and examined. Agree with Ms. Vizcaino's note Pt with c/o long standing problems with abd pain and bladder issues abd soft, Nd, nTTP hx of h pylori agree with GI evaluation would consider elective urology consult no surgical plans Thanks for consult! MATTEO VIZCAINO APRN Sep 18, 2017 12:17 VERÓNICA TEJEDA MD Sep 18, 2017 13:22
[2017-09-18] MEDS: tiZANidine 4 MG TABLET. PO SCH ×3 (13:01→20:46)
[2017-09-18] MEDS: ENOXAPARIN 30 MG/0.3 ML SYRINGE. SQ SCH (13:01)
[2017-09-18] MEDS: SIMETHICONE 80 MG TAB.CHEW PO PRN ×2 (13:01→18:02)
[2017-09-18] MEDS: traMADol 50 MG TABLET PO SCH ×3 (13:02→20:47)
--- NOTE | 2017-09-18 14:09 | PDOC2 ---
GI CONSULT Reason For Consult: RLQ pain HPI: HPI: 67 y/o female w/ RLQ pain. Had increased gas after eating [employer] last . Then developed diarrhea. Was seen in ER, treated w/ atbx for UTI and "colitis." Diarrhea stopped. Came back to ER w/ abd pain, CT unrevealing as below. Mostly RLQ but also suprapubic "spasms" w/ urinating (h/o IC). Now passing hard balls of stool, h/o constipation on Miralax QD at home. Colonoscopy 2 years ago, reports normal. Recent dental extractions, has lost weight due to decreased PO intake, usually drinks Ensure at home. H/o GERD, no previous EGD, controlled w/ PPI Q a.m. and H2 micheal QHS. No n/v, dysphagia. Really wants to eat, asks for a nutrition consult. No GB, liver, pancreas history. PMH: PMH: constipation, interstitial cystitis, UTI, sinusitis, GERD, asthma, rectocele repair, partial hysterectomy, tubal ligation FH: Family History: No pertinent hx Social History: Smoke: No ALCOHOL: none Drugs: None ROS: GEN: Denies fevers, chills, sweats HEENT: Denies blurred vision, sore throat CV: Denies chest pain RESP: Denies shortness of air, cough GI: Per HPI : +dysuria ENDO: +weight loss NEURO: Denies confusion, dizziness MSK: Denies weakness, joint pain/swelling SKIN: Denies jaundice, pruritus Vitals: Vitals: Vital Signs Date Time Temp Pulse Resp B/P (MAP) Pulse Ox O2 Delivery O2 Flow Rate FiO2 09/18/17 13:02 16 Room Air 09/18/17 11:00 99.5 58 112/71 (85) 99 99.5 Labs: Labs: Laboratory Tests Test 09/17/17 19:41 09/17/17 19:58 09/18/17 03:40 Urine Collection Type Unknown Urine Color Zora Urine Clarity Clear Urine pH 6.5 Urine Specific [place] 1.010 Urine Protein Negative mg/dL (NEG-TRACE) Urine Glucose (UA) Negative mg/dL (NEG) Urine Ketones (Stick) Negative mg/dL (NEG) Urine Blood Negative (NEG) Urine Nitrite Positive (NEG) Urine Bilirubin Negative (NEG) Urine Urobilinogen Dipstick 0.2 mg/dL (0.2 mg/dL) Urine Leukocyte Esterase Negative (NEG) Urine RBC Occ /HPF (0-2) Urine WBC Occ /HPF (0-4) Urine Squamous Epithelial Cells Few /LPF Urine Bacteria Few /HPF (0-FEW) Urine Mucus Slight /LPF White Blood Count 4.0 x10^3/uL (4.0-11.0) 4.2 x10^3/uL (4.0-11.0) Red Blood Count 4.06 x10^6/uL (3.50-5.40) 3.85 x10^6/uL (3.50-5.40) Hemoglobin 11.1 g/dL (12.0-15.5) 10.6 g/dL (12.0-15.5) Hematocrit 35.3 % (36.0-47.0) 33.5 % (36.0-47.0) Mean Corpuscular Volume 87 fL (79-100) 87 fL (79-100) Mean Corpuscular Hemoglobin 27 pg (25-35) 28 pg (25-35) Mean Corpuscular Hemoglobin Concent 32 g/dL (31-37) 32 g/dL (31-37) Red Cell Distribution Width 14.0 % (11.5-14.5) 13.9 % (11.5-14.5) Platelet Count 206 x10^3/uL (140-400) 195 x10^3/uL (140-400) Neutrophils (%) (Auto) 49 % (31-73) 43 % (31-73) Lymphocytes (%) (Auto) 42 % (24-48) 47 % (24-48) Monocytes (%) (Auto) 8 % (0-9) 8 % (0-9) Eosinophils (%) (Auto) 1 % (0-3) 2 % (0-3) Basophils (%) (Auto) 1 % (0-3) 1 % (0-3) Neutrophils # (Auto) 2.0 x10^3uL (1.8-7.7) 1.8 x10^3uL (1.8-7.7) Lymphocytes # (Auto) 1.7 x10^3/uL (1.0-4.8) 2.0 x10^3/uL (1.0-4.8) Monocytes # (Auto) 0.3 x10^3/uL (0.0-1.1) 0.3 x10^3/uL (0.0-1.1) Eosinophils # (Auto) 0.1 x10^3/uL (0.0-0.7) 0.1 x10^3/uL (0.0-0.7) Basophils # (Auto) 0.0 x10^3/uL (0.0-0.2) 0.0 x10^3/uL (0.0-0.2) Sodium Level 140 mmol/L (136-145) 140 mmol/L (136-145) Potassium Level 3.8 mmol/L (3.5-5.1) 3.9 mmol/L (3.5-5.1) Chloride Level 104 mmol/L (98-107) 107 mmol/L (98-107) Carbon Dioxide Level 30 mmol/L (21-32) 29 mmol/L (21-32) Anion Gap 6 (6-14) 4 (6-14) Blood Urea Nitrogen 15 mg/dL (7-20) 11 mg/dL (7-20) Creatinine 0.8 mg/dL (0.6-1.0) 0.7 mg/dL (0.6-1.0) Estimated GFR (Cockcroft-Gault) 87.1 101.6 BUN/Creatinine Ratio 19 (6-20) Glucose Level 91 mg/dL (70-99) 85 mg/dL (70-99) Lactic Acid Level 0.9 mmol/L (0.4-2.0) Calcium Level 9.0 mg/dL (8.5-10.1) 8.4 mg/dL (8.5-10.1) Total Bilirubin 0.3 mg/dL (0.2-1.0) Aspartate Amino Transf (AST/SGOT) 22 U/L (15-37) Alanine Aminotransferase (ALT/SGPT) 26 U/L (14-59) Alkaline Phosphatase 46 U/L (46-116) Total Protein 7.4 g/dL (6.4-8.2) Albumin 3.6 g/dL (3.4-5.0) Albumin/Globulin Ratio 0.9 (1.0-1.7) Lipase 150 U/L (73-393) Allergies: Coded Allergies: levofloxacin (Verified Allergy, Intermediate, Nausea and Vomiting, 09/11/17 ) lactose (Verified Adverse Reaction, Severe, 09/18/17) Patient is lactose-intolerant Medications: Current Medications Medications (Trade) Dose Ordered Sig/Mikie Route PRN Reason Start Time Stop Time Status Last Admin Dose Admin Iohexol (Omnipaque 300 Mg/ml) 75 ml 1X ONCE IV 09/17/17 21:00 09/17/17 21:01 DC 09/17/17 21:14 Ceftriaxone Sodium 50 ml @ 100 mls/hr 1X ONCE IV 09/17/17 22:00 09/17/17 22:29 DC 09/17/17 22:40 Ondansetron HCl (Zofran) 4 mg PRN Q8HRS PRN IV NAUSEA/VOMITING 09/17/17 22:15 09/18/17 12:09 DC 09/18/17 09:56 Morphine Sulfate 4 mg PRN Q2HR PRN IV PAIN 09/17/17 22:15 09/18/17 22:14 09/18/17 09:47 Sodium Chloride 1,000 ml @ 75 mls/hr [id number] IV 09/17/17 22:15 09/18/17 22:14 09/18/17 09:47 Phenazopyridine HCl (Pyridium) 200 mg PRN TID PRN PO URINARY PAIN 09/17/17 23:45 09/18/17 12:09 DC 09/18/17 09:46 Polyethylene Glycol (miraLAX PACKET) 17 gm PRN DAILY PRN PO CONSTIPATION 09/18/17 12:00 09/18/17 13:00 Tizanidine HCl (Zanaflex) 4 mg QID PO 09/18/17 13:00 09/18/17 13:01 Tramadol HCl (Ultram) 100 mg QID PO 09/18/17 13:00 09/18/17 13:02 Simethicone (Gas-X) 80 mg PRN AFTMEALHC PRN PO GAS / BLOATING 09/18/17 12:00 09/18/17 13:01 Lactulose 20 gm PRN Q12HR PRN PO CONSTIPATION 09/18/17 12:00 09/18/17 13:01 Enoxaparin Sodium (Lovenox 30mg Syringe) 30 mg Q24H SQ 09/18/17 13:00 09/18/17 13:01 Imaging: Imaging: CT A/P IMPRESSION: 1. No acute abnormality of abdomen or pelvis. The appendix is partially visualized. No inflammatory changes in the right lower quadrant. 2. Trace amount of free pelvic fluid, nonspecific. 3. Status post hysterectomy. PE: GEN: thin HEENT: Atraumatic, PERRL LUNGS: CTAB HEART: RRR ABD: NABS, S/ND, RLQ and suprapubic discomfort EXTREMITY: No edema SKIN: No rashes, no jaundice NEURO/PSYCH: A & O 3 A/P: A/P: RLQ pain Constipation GERD Weight loss, decreased PO intake w/ dental extractions UTI CRC screen -colonoscopy 2 years ago -- Treat constipation. Continue PPI for GERD. Nutrition consult, ADAT. Defer urology symptoms to primary. MENG RUTHERFORD Sep 18, 2017 14:09
[2017-09-18] MEDS: POLYETHYLENE GLYCOL 3350 17 GM PACKET. PO SCH ×2 (14:15→20:47)
--- NOTE | 2017-09-18 17:03 | PDOC1 ---
History and Physical Date of Admission Date of Admission 09/17/17 Identification/Chief Complaint Chief Complaint abd pain Problems: Source Source: Chart review, Patient History of Present Illness History of Present Illness HPI HPI Patient is a 67 year old F who presents with right lower quadrant abdominal pain x2 weeks. pt said she always has lots of gas, GERD, interstitial cystitis. Started to have RLQ pain 2 weeks ago, with no N/V.She did a CT last week was neg. She saw her PCP yesterday who felt pt has rebound RLQ tenderness and then send pt to ER to rule out appendicitis. had diarrhea 2 days ago. Pt has dysuria, x1 week. + chills. no fever, cough, sob. h/o hpylori, concern whether that is the reason for this pain. CT in ER still neg. Past Medical History Pulmonary: Asthma GI: GERD Past Surgical History Past Surgical History: Hysterectomy (partial), Other (rectocele repair) Family History Family History: Hypertension Social History Smoke: No ALCOHOL: none Drugs: None Current Problem List Problem List Problems Medical Problems: (1) Intractable abdominal pain Status: Acute (2) UTI (urinary tract infection) Status: Acute Current Medications Current Medications Current Medications Medications (Trade) Dose Ordered Sig/Mikie Start Time Stop Time Status Last Admin Dose Admin Acetaminophen (Tylenol) 650 mg PRN Q6HRS PRN 09/18/17 12:00 Bisacodyl (Dulcolax Supp) 10 mg PRN DAILY PRN 09/18/17 12:00 Ceftriaxone Sodium 1 gm/ Dextrose 50 ml @ 100 mls/hr Q24H 09/18/17 12:00 UNV Ceftriaxone Sodium (Rocephin) 1 gm Q24H 09/18/17 21:00 Docusate Sodium (Colace) 100 mg BID 09/18/17 21:00 Enoxaparin Sodium (Lovenox 30mg Syringe) 30 mg Q24H 09/18/17 13:00 09/18/17 13:01 30 MG Hydralazine HCl (Apresoline Inj) 10 mg PRN Q4HRS PRN 09/18/17 12:00 Hyoscyamine (Levbid Er) 0.1875 mg BID 09/18/17 21:00 Info (Do NOT chart on this entry -- for MONITORING) 1 each PRN DAILY PRN 09/17/17 21:00 09/19/17 20:59 Iohexol (Omnipaque 300 Mg/ml) 75 ml 1X ONCE 09/17/17 21:00 09/17/17 21:01 DC 09/17/17 21:14 75 ML Lactulose 20 gm PRN Q12HR PRN 09/18/17 12:00 09/18/17 13:01 20 GM Magnesium Hydroxide (Milk Of Magnesia) 2,400 mg BID 09/18/17 21:00 Morphine Sulfate 2 mg PRN Q2HR PRN 09/18/17 12:00 Ondansetron HCl (Zofran) 4 mg PRN Q6HRS PRN 09/18/17 12:00 Oxybutynin Chloride (Ditropan) 5 mg BID 09/18/17 21:00 Pantoprazole Sodium (Protonix) 40 mg DAILYAC 09/19/17 07:30 Phenazopyridine HCl (Pyridium) 200 mg BID 09/18/17 21:00 Polyethylene Glycol (miraLAX PACKET) 17 gm BID 09/18/17 14:15 Senna/Docusate Sodium (Senna Plus) 1 tab BID 09/18/17 21:00 Simethicone (Gas-X) 80 mg PRN AFTMEALHC PRN 09/18/17 12:00 09/18/17 13:01 80 MG Sodium Chloride 1,000 ml @ 75 mls/hr [id number] 09/17/17 22:15 09/18/17 22:14 09/18/17 09:47 75 MLS/HR Tizanidine HCl (Zanaflex) 4 mg QID 09/18/17 13:00 09/18/17 13:01 4 MG Tramadol HCl (Ultram) 50 mg PRN Q6HRS PRN 09/18/17 12:00 Allergies Allergies Allergies Coded Allergies Type Severity Reaction Last Updated Verified levofloxacin Allergy Intermediate Nausea and Vomiting 09/11/17 Yes lactose Adverse Reaction Severe 09/18/17 Yes ROS Review of System CONSTITUTIONAL: No fever or chills EYES: No recent changes SKIN: No rash or itching CARDIOVASCULAR: No chest pain, syncope, palpitations, or edema RESPIRATORY: No SOB or cough GASTROINTESTINAL: No nausea, vomiting or abdominal pain NEUROLOGICAL: No headaches or weakness ENDOCRINE: No cold or heat intolerance GENITOURINARY: No urgency or frequency of urination MUSCULOSKELETAL: No back pain or joint pain LYMPHATICS: No enlarged lymph nodes PSYCHIATRIC: No anxiety or depression Physical Exam Physical Exam GEN.: No apparent distress. Alert and oriented. HEENT: Head is normocephalic, atraumatic NECK: Supple. LUNGS: Clear to auscultation. HEART: RRR, S1, S2 present. Peripheral pulses intact ABDOMEN: Soft, Positive bowel sounds. diffuse mild tenderness, mainly at RLQ, + rebound, but soft , not guarding. EXTREMITIES: Without any cyanosis. NEUROLOGIC: Normal speech, normal tone PSYCHIATRIC: Normal affect, normal mood. SKIN: No ulcerations Vitals Vitals Vital Signs Date Time Temp Pulse Resp B/P (MAP) Pulse Ox O2 Delivery O2 Flow Rate FiO2 09/18/17 14:02 16 Room Air 09/18/17 11:00 99.5 58 112/71 (85) 99 99.5 Labs Labs Laboratory Tests Test 09/17/17 19:41 09/17/17 19:58 09/18/17 03:40 Urine Collection Type Unknown Urine Color Zora Urine Clarity Clear Urine pH 6.5 Urine Specific [place] 1.010 Urine Protein Negative mg/dL (NEG-TRACE) Urine Glucose (UA) Negative mg/dL (NEG) Urine Ketones (Stick) Negative mg/dL (NEG) Urine Blood Negative (NEG) Urine Nitrite Positive (NEG) Urine Bilirubin Negative (NEG) Urine Urobilinogen Dipstick 0.2 mg/dL (0.2 mg/dL) Urine Leukocyte Esterase Negative (NEG) Urine RBC Occ /HPF (0-2) Urine WBC Occ /HPF (0-4) Urine Squamous Epithelial Cells Few /LPF Urine Bacteria Few /HPF (0-FEW) Urine Mucus Slight /LPF White Blood Count 4.0 x10^3/uL (4.0-11.0) 4.2 x10^3/uL (4.0-11.0) Red Blood Count 4.06 x10^6/uL (3.50-5.40) 3.85 x10^6/uL (3.50-5.40) Hemoglobin 11.1 g/dL (12.0-15.5) 10.6 g/dL (12.0-15.5) Hematocrit 35.3 % (36.0-47.0) 33.5 % (36.0-47.0) Mean Corpuscular Volume 87 fL (79-100) 87 fL (79-100) Mean Corpuscular Hemoglobin 27 pg (25-35) 28 pg (25-35) Mean Corpuscular Hemoglobin Concent 32 g/dL (31-37) 32 g/dL (31-37) Red Cell Distribution Width 14.0 % (11.5-14.5) 13.9 % (11.5-14.5) Platelet Count 206 x10^3/uL (140-400) 195 x10^3/uL (140-400) Neutrophils (%) (Auto) 49 % (31-73) 43 % (31-73) Lymphocytes (%) (Auto) 42 % (24-48) 47 % (24-48) Monocytes (%) (Auto) 8 % (0-9) 8 % (0-9) Eosinophils (%) (Auto) 1 % (0-3) 2 % (0-3) Basophils (%) (Auto) 1 % (0-3) 1 % (0-3) Neutrophils # (Auto) 2.0 x10^3uL (1.8-7.7) 1.8 x10^3uL (1.8-7.7) Lymphocytes # (Auto) 1.7 x10^3/uL (1.0-4.8) 2.0 x10^3/uL (1.0-4.8) Monocytes # (Auto) 0.3 x10^3/uL (0.0-1.1) 0.3 x10^3/uL (0.0-1.1) Eosinophils # (Auto) 0.1 x10^3/uL (0.0-0.7) 0.1 x10^3/uL (0.0-0.7) Basophils # (Auto) 0.0 x10^3/uL (0.0-0.2) 0.0 x10^3/uL (0.0-0.2) Sodium Level 140 mmol/L (136-145) 140 mmol/L (136-145) Potassium Level 3.8 mmol/L (3.5-5.1) 3.9 mmol/L (3.5-5.1) Chloride Level 104 mmol/L (98-107) 107 mmol/L (98-107) Carbon Dioxide Level 30 mmol/L (21-32) 29 mmol/L (21-32) Anion Gap 6 (6-14) 4 (6-14) Blood Urea Nitrogen 15 mg/dL (7-20) 11 mg/dL (7-20) Creatinine 0.8 mg/dL (0.6-1.0) 0.7 mg/dL (0.6-1.0) Estimated GFR (Cockcroft-Gault) 87.1 101.6 BUN/Creatinine Ratio 19 (6-20) Glucose Level 91 mg/dL (70-99) 85 mg/dL (70-99) Lactic Acid Level 0.9 mmol/L (0.4-2.0) Calcium Level 9.0 mg/dL (8.5-10.1) 8.4 mg/dL (8.5-10.1) Total Bilirubin 0.3 mg/dL (0.2-1.0) Aspartate Amino Transf (AST/SGOT) 22 U/L (15-37) Alanine Aminotransferase (ALT/SGPT) 26 U/L (14-59) Alkaline Phosphatase 46 U/L (46-116) Total Protein 7.4 g/dL (6.4-8.2) Albumin 3.6 g/dL (3.4-5.0) Albumin/Globulin Ratio 0.9 (1.0-1.7) Lipase 150 U/L (73-393) Laboratory Tests Test 09/17/17 19:41 09/17/17 19:58 09/18/17 03:40 Urine Collection Type Unknown Urine Color Zora Urine Clarity Clear Urine pH 6.5 Urine Specific [place] 1.010 Urine Protein Negative mg/dL (NEG-TRACE) Urine Glucose (UA) Negative mg/dL (NEG) Urine Ketones (Stick) Negative mg/dL (NEG) Urine Blood Negative (NEG) Urine Nitrite Positive (NEG) Urine Bilirubin Negative (NEG) Urine Urobilinogen Dipstick 0.2 mg/dL (0.2 mg/dL) Urine Leukocyte Esterase Negative (NEG) Urine RBC Occ /HPF (0-2) Urine WBC Occ /HPF (0-4) Urine Squamous Epithelial Cells Few /LPF Urine Bacteria Few /HPF (0-FEW) Urine Mucus Slight /LPF White Blood Count 4.0 x10^3/uL (4.0-11.0) 4.2 x10^3/uL (4.0-11.0) Red Blood Count 4.06 x10^6/uL (3.50-5.40) 3.85 x10^6/uL (3.50-5.40) Hemoglobin 11.1 g/dL (12.0-15.5) 10.6 g/dL (12.0-15.5) Hematocrit 35.3 % (36.0-47.0) 33.5 % (36.0-47.0) Mean Corpuscular Volume 87 fL (79-100) 87 fL (79-100) Mean Corpuscular Hemoglobin 27 pg (25-35) 28 pg (25-35) Mean Corpuscular Hemoglobin Concent 32 g/dL (31-37) 32 g/dL (31-37) Red Cell Distribution Width 14.0 % (11.5-14.5) 13.9 % (11.5-14.5) Platelet Count 206 x10^3/uL (140-400) 195 x10^3/uL (140-400) Neutrophils (%) (Auto) 49 % (31-73) 43 % (31-73) Lymphocytes (%) (Auto) 42 % (24-48) 47 % (24-48) Monocytes (%) (Auto) 8 % (0-9) 8 % (0-9) Eosinophils (%) (Auto) 1 % (0-3) 2 % (0-3) Basophils (%) (Auto) 1 % (0-3) 1 % (0-3) Neutrophils # (Auto) 2.0 x10^3uL (1.8-7.7) 1.8 x10^3uL (1.8-7.7) Lymphocytes # (Auto) 1.7 x10^3/uL (1.0-4.8) 2.0 x10^3/uL (1.0-4.8) Monocytes # (Auto) 0.3 x10^3/uL (0.0-1.1) 0.3 x10^3/uL (0.0-1.1) Eosinophils # (Auto) 0.1 x10^3/uL (0.0-0.7) 0.1 x10^3/uL (0.0-0.7) Basophils # (Auto) 0.0 x10^3/uL (0.0-0.2) 0.0 x10^3/uL (0.0-0.2) Sodium Level 140 mmol/L (136-145) 140 mmol/L (136-145) Potassium Level 3.8 mmol/L (3.5-5.1) 3.9 mmol/L (3.5-5.1) Chloride Level 104 mmol/L (98-107) 107 mmol/L (98-107) Carbon Dioxide Level 30 mmol/L (21-32) 29 mmol/L (21-32) Anion Gap 6 (6-14) 4 (6-14) Blood Urea Nitrogen 15 mg/dL (7-20) 11 mg/dL (7-20) Creatinine 0.8 mg/dL (0.6-1.0) 0.7 mg/dL (0.6-1.0) Estimated GFR (Cockcroft-Gault) 87.1 101.6 BUN/Creatinine Ratio 19 (6-20) Glucose Level 91 mg/dL (70-99) 85 mg/dL (70-99) Lactic Acid Level 0.9 mmol/L (0.4-2.0) Calcium Level 9.0 mg/dL (8.5-10.1) 8.4 mg/dL (8.5-10.1) Total Bilirubin 0.3 mg/dL (0.2-1.0) Aspartate Amino Transf (AST/SGOT) 22 U/L (15-37) Alanine Aminotransferase (ALT/SGPT) 26 U/L (14-59) Alkaline Phosphatase 46 U/L (46-116) Total Protein 7.4 g/dL (6.4-8.2) Albumin 3.6 g/dL (3.4-5.0) Albumin/Globulin Ratio 0.9 (1.0-1.7) Lipase 150 U/L (73-393) VTE Prophylaxis Ordered VTE Prophylaxis Devices: Yes VTE Pharmacological Prophylaxi: Yes Assessment/Plan Assessment/Plan RLQ abd pain, 2/2 constipation likely vs. IBS UTI symptom, doubt UTI, likely 2/2 interstitial cystitis GERD INtermittent asthma plan: fu with sx, no intervention GI consulted, SBS pending treat possible UTI for now cont meds for bladder spasm ppi dvt ppx DAXA MCGARRY MD Sep 18, 2017 17:03
[2017-09-18] MEDS ORDERED: oxyCODONE IR 5 MG TABLET PO PRN (18:15)
[2017-09-18] MEDS: DOCUSATE SODIUM 100 MG CAPSULE. PO SCH (20:46)
[2017-09-18] MEDS: HYOSCYAMINE ER 0.375 MG TAB.ER.12H PO SCH (20:46)
[2017-09-18] MEDS: PHENAZOPYRIDINE 200 MG TABLET. PO SCH (20:46)
[2017-09-18] MEDS: SENNOSIDES/DOCUSATE 8.6/50MG TABLET. PO SCH (20:47)
[2017-09-18] MEDS: OXYBUTYNIN CHLORIDE 5 MG TABLET PO SCH (20:47)
[2017-09-18] MEDS: MAGNESIUM HYDROXIDE 2,400 MG/30 ML ORAL.SUSP. PO SCH (20:47)
[2017-09-18] MEDS ORDERED: cefTRIAXone IV Push 1 GM VIAL. IVP SCH (21:00)
[2017-09-19] MEDS: SENNOSIDES/DOCUSATE 8.6/50MG TABLET. PO SCH ×2 (00:33→12:36)
[2017-09-19 03:02] VITALS: BP 117/87
[2017-09-19 04:32] LABS: BASO % 0 % (0-3); EOS % 2 % (0-3); HEMATOCRIT 33.5 % (36.0-47.0); HEMOGLOBIN 10.6 g/dL (12.0-15.5); LYMPH # 1.8 x10^3/uL (1.0-4.8); LYMPH % 43 % (24-48); MEAN CORPUSCULAR HEMOGLOBIN 28 pg (25-35); MEAN CORPUSCULAR HGB CONC 32 g/dL (31-37); MEAN CORPUSCULAR VOLUME 87 fL (79-100); MONO % 10 % (0-9); NEUT % 45 % (31-73); PLATELET COUNT 202 x10^3/uL (140-400); RED BLOOD COUNT 3.83 x10^6/uL (3.50-5.40); RED CELL DISTRIBUTION WIDTH 14.1 % (11.5-14.5); WHITE BLOOD COUNT 4.2 x10^3/uL (4.0-11.0)
[2017-09-19 05:41] LABS: CALCIUM 8.8 mg/dL (8.5-10.1); CREATININE 0.7 mg/dL (0.6-1.0); GFR 101.6; POTASSIUM 4.2 mmol/L (3.5-5.1)
[2017-09-19 07:00] VITALS: BP 109/62
[2017-09-19] MEDS ORDERED: PANTOPRAZOLE 40 MG TABLET.DR. PO SCH (07:30)
[2017-09-19] MEDS ORDERED: BARIUM SULFATE 60% 355 ML SUSP PO ONE (08:00)
--- NOTE | 2017-09-19 08:54 | PDOC ---
SURGICAL PROGRESS NOTE Subjective Pt feels much better today, pain nearly resolved Vital Signs Vital Signs Date Time Temp Pulse Resp B/P (MAP) Pulse Ox O2 Delivery O2 Flow Rate FiO2 09/19/17 03:02 98.2 74 18 117/87 (97) 95 Room Air 98.2 I&O Intake and Output 09/19/17 07:00 Intake Total 900 ml Balance 900 ml Intake Oral 900 ml # Voids 7 General: Alert, Oriented X3, Cooperative, No acute distress Abdomen: Soft, Other (mild TTP RLQ) Labs Laboratory Tests Test 09/17/17 19:41 09/17/17 19:58 09/18/17 03:40 09/19/17 03:45 Urine Collection Type Unknown Urine Color Zora Urine Clarity Clear Urine pH 6.5 Urine Specific [place] 1.010 Urine Protein Negative mg/dL (NEG-TRACE) Urine Glucose (UA) Negative mg/dL (NEG) Urine Ketones (Stick) Negative mg/dL (NEG) Urine Blood Negative (NEG) Urine Nitrite Positive (NEG) Urine Bilirubin Negative (NEG) Urine Urobilinogen Dipstick 0.2 mg/dL (0.2 mg/dL) Urine Leukocyte Esterase Negative (NEG) Urine RBC Occ /HPF (0-2) Urine WBC Occ /HPF (0-4) Urine Squamous Epithelial Cells Few /LPF Urine Bacteria Few /HPF (0-FEW) Urine Mucus Slight /LPF White Blood Count 4.0 x10^3/uL (4.0-11.0) 4.2 x10^3/uL (4.0-11.0) 4.2 x10^3/uL (4.0-11.0) Red Blood Count 4.06 x10^6/uL (3.50-5.40) 3.85 x10^6/uL (3.50-5.40) 3.83 x10^6/uL (3.50-5.40) Hemoglobin 11.1 g/dL (12.0-15.5) 10.6 g/dL (12.0-15.5) 10.6 g/dL (12.0-15.5) Hematocrit 35.3 % (36.0-47.0) 33.5 % (36.0-47.0) 33.5 % (36.0-47.0) Mean Corpuscular Volume 87 fL (79-100) 87 fL (79-100) 87 fL (79-100) Mean Corpuscular Hemoglobin 27 pg (25-35) 28 pg (25-35) 28 pg (25-35) Mean Corpuscular Hemoglobin Concent 32 g/dL (31-37) 32 g/dL (31-37) 32 g/dL (31-37) Red Cell Distribution Width 14.0 % (11.5-14.5) 13.9 % (11.5-14.5) 14.1 % (11.5-14.5) Platelet Count 206 x10^3/uL (140-400) 195 x10^3/uL (140-400) 202 x10^3/uL (140-400) Neutrophils (%) (Auto) 49 % (31-73) 43 % (31-73) 45 % (31-73) Lymphocytes (%) (Auto) 42 % (24-48) 47 % (24-48) 43 % (24-48) Monocytes (%) (Auto) 8 % (0-9) 8 % (0-9) 10 % (0-9) Eosinophils (%) (Auto) 1 % (0-3) 2 % (0-3) 2 % (0-3) Basophils (%) (Auto) 1 % (0-3) 1 % (0-3) 0 % (0-3) Neutrophils # (Auto) 2.0 x10^3uL (1.8-7.7) 1.8 x10^3uL (1.8-7.7) 1.9 x10^3uL (1.8-7.7) Lymphocytes # (Auto) 1.7 x10^3/uL (1.0-4.8) 2.0 x10^3/uL (1.0-4.8) 1.8 x10^3/uL (1.0-4.8) Monocytes # (Auto) 0.3 x10^3/uL (0.0-1.1) 0.3 x10^3/uL (0.0-1.1) 0.4 x10^3/uL (0.0-1.1) Eosinophils # (Auto) 0.1 x10^3/uL (0.0-0.7) 0.1 x10^3/uL (0.0-0.7) 0.1 x10^3/uL (0.0-0.7) Basophils # (Auto) 0.0 x10^3/uL (0.0-0.2) 0.0 x10^3/uL (0.0-0.2) 0.0 x10^3/uL (0.0-0.2) Sodium Level 140 mmol/L (136-145) 140 mmol/L (136-145) 142 mmol/L (136-145) Potassium Level 3.8 mmol/L (3.5-5.1) 3.9 mmol/L (3.5-5.1) 4.2 mmol/L (3.5-5.1) Chloride Level 104 mmol/L (98-107) 107 mmol/L (98-107) 106 mmol/L (98-107) Carbon Dioxide Level 30 mmol/L (21-32) 29 mmol/L (21-32) 31 mmol/L (21-32) Anion Gap 6 (6-14) 4 (6-14) 5 (6-14) Blood Urea Nitrogen 15 mg/dL (7-20) 11 mg/dL (7-20) 8 mg/dL (7-20) Creatinine 0.8 mg/dL (0.6-1.0) 0.7 mg/dL (0.6-1.0) 0.7 mg/dL (0.6-1.0) Estimated GFR (Cockcroft-Gault) 87.1 101.6 101.6 BUN/Creatinine Ratio 19 (6-20) Glucose Level 91 mg/dL (70-99) 85 mg/dL (70-99) 94 mg/dL (70-99) Lactic Acid Level 0.9 mmol/L (0.4-2.0) Calcium Level 9.0 mg/dL (8.5-10.1) 8.4 mg/dL (8.5-10.1) 8.8 mg/dL (8.5-10.1) Total Bilirubin 0.3 mg/dL (0.2-1.0) Aspartate Amino Transf (AST/SGOT) 22 U/L (15-37) Alanine Aminotransferase (ALT/SGPT) 26 U/L (14-59) Alkaline Phosphatase 46 U/L (46-116) Total Protein 7.4 g/dL (6.4-8.2) Albumin 3.6 g/dL (3.4-5.0) Albumin/Globulin Ratio 0.9 (1.0-1.7) Lipase 150 U/L (73-393) Laboratory Tests Test 09/19/17 03:45 White Blood Count 4.2 x10^3/uL (4.0-11.0) Red Blood Count 3.83 x10^6/uL (3.50-5.40) Hemoglobin 10.6 g/dL (12.0-15.5) Hematocrit 33.5 % (36.0-47.0) Mean Corpuscular Volume 87 fL (79-100) Mean Corpuscular Hemoglobin 28 pg (25-35) Mean Corpuscular Hemoglobin Concent 32 g/dL (31-37) Red Cell Distribution Width 14.1 % (11.5-14.5) Platelet Count 202 x10^3/uL (140-400) Neutrophils (%) (Auto) 45 % (31-73) Lymphocytes (%) (Auto) 43 % (24-48) Monocytes (%) (Auto) 10 % (0-9) Eosinophils (%) (Auto) 2 % (0-3) Basophils (%) (Auto) 0 % (0-3) Neutrophils # (Auto) 1.9 x10^3uL (1.8-7.7) Lymphocytes # (Auto) 1.8 x10^3/uL (1.0-4.8) Monocytes # (Auto) 0.4 x10^3/uL (0.0-1.1) Eosinophils # (Auto) 0.1 x10^3/uL (0.0-0.7) Basophils # (Auto) 0.0 x10^3/uL (0.0-0.2) Sodium Level 142 mmol/L (136-145) Potassium Level 4.2 mmol/L (3.5-5.1) Chloride Level 106 mmol/L (98-107) Carbon Dioxide Level 31 mmol/L (21-32) Anion Gap 5 (6-14) Blood Urea Nitrogen 8 mg/dL (7-20) Creatinine 0.7 mg/dL (0.6-1.0) Estimated GFR (Cockcroft-Gault) 101.6 Glucose Level 94 mg/dL (70-99) Calcium Level 8.8 mg/dL (8.5-10.1) Problem List Problems Medical Problems: (1) Intractable abdominal pain Status: Acute (2) UTI (urinary tract infection) Status: Acute Assessment/Plan abd pain agree with w/u per GI pt interested in going home today, which seems reasonable no gen surg plans Problems: VERÓNICA TEJEDA MD Sep 19, 2017 08:54
--- NOTE | 2017-09-19 09:13 | PDOC ---
PROGRESS NOTES Chief Complaint Chief Complaint RLQ abd pain ASSESSMENT AND PLAN: 1. Abd pain: constipation +/- IBS/IBD. bowel regimen. SBFT today. GI following 2. Interstitial cystitis: urine cult w/o infect agent. cont anti-spasmodics for bladder. F/U with urology on O/P basis 3. GERD: PPI 4. Intermittent asthma: stable. inh/nebs PRN 5. Prophylaxis: lovenox History of Present Illness History of Present Illness pain much improved, had BM Vitals Vitals Vital Signs Date Time Temp Pulse Resp B/P (MAP) Pulse Ox O2 Delivery O2 Flow Rate FiO2 09/19/17 03:02 98.2 74 18 117/87 (97) 95 Room Air 98.2 Physical Exam General: Alert, Oriented X3, Cooperative, No acute distress Heart: Regular rate, No murmurs Abdomen: Normal bowel sounds, Soft, No tenderness Extremities: No clubbing, No edema Skin: No rashes Labs LABS Laboratory Tests Test 09/19/17 03:45 White Blood Count 4.2 x10^3/uL (4.0-11.0) Red Blood Count 3.83 x10^6/uL (3.50-5.40) Hemoglobin 10.6 g/dL (12.0-15.5) Hematocrit 33.5 % (36.0-47.0) Mean Corpuscular Volume 87 fL (79-100) Mean Corpuscular Hemoglobin 28 pg (25-35) Mean Corpuscular Hemoglobin Concent 32 g/dL (31-37) Red Cell Distribution Width 14.1 % (11.5-14.5) Platelet Count 202 x10^3/uL (140-400) Neutrophils (%) (Auto) 45 % (31-73) Lymphocytes (%) (Auto) 43 % (24-48) Monocytes (%) (Auto) 10 % (0-9) Eosinophils (%) (Auto) 2 % (0-3) Basophils (%) (Auto) 0 % (0-3) Neutrophils # (Auto) 1.9 x10^3uL (1.8-7.7) Lymphocytes # (Auto) 1.8 x10^3/uL (1.0-4.8) Monocytes # (Auto) 0.4 x10^3/uL (0.0-1.1) Eosinophils # (Auto) 0.1 x10^3/uL (0.0-0.7) Basophils # (Auto) 0.0 x10^3/uL (0.0-0.2) Sodium Level 142 mmol/L (136-145) Potassium Level 4.2 mmol/L (3.5-5.1) Chloride Level 106 mmol/L (98-107) Carbon Dioxide Level 31 mmol/L (21-32) Anion Gap 5 (6-14) Blood Urea Nitrogen 8 mg/dL (7-20) Creatinine 0.7 mg/dL (0.6-1.0) Estimated GFR (Cockcroft-Gault) 101.6 Glucose Level 94 mg/dL (70-99) Calcium Level 8.8 mg/dL (8.5-10.1) Nutrition Consultation Dietary Evaluation: Recommendations by RD: Increase Calorie Intake, Protein supplementation Comments: added boost breeze while on clears Ensure when diet adv to fulls/ solids Expected Outcomes/Goals: to meet > 75% est nutr needs Interpretation of weight loss: >5% in 1 month Malnutrition Findings: Body Fat Depletion (Non Severe: Mild Depletion Weight Status: Underweight CARISSA OLIVER MD Sep 19, 2017 09:13
--- NOTE | 2017-09-19 11:39 | PDOC ---
Objective: Objective: Out of room. Reviewed other notes - seems improved today. Vital Signs: Vital Signs Date Time Temp Pulse Resp B/P (MAP) Pulse Ox O2 Delivery O2 Flow Rate FiO2 09/19/17 07:00 98.5 54 18 109/62 (78) 94 Room Air 98.5 Labs: Laboratory Tests Test 09/19/17 03:45 White Blood Count 4.2 x10^3/uL Red Blood Count 3.83 x10^6/uL Hemoglobin 10.6 g/dL Hematocrit 33.5 % Mean Corpuscular Volume 87 fL Mean Corpuscular Hemoglobin 28 pg Mean Corpuscular Hemoglobin Concent 32 g/dL Red Cell Distribution Width 14.1 % Platelet Count 202 x10^3/uL Neutrophils (%) (Auto) 45 % Lymphocytes (%) (Auto) 43 % Monocytes (%) (Auto) 10 % Eosinophils (%) (Auto) 2 % Basophils (%) (Auto) 0 % Neutrophils # (Auto) 1.9 x10^3uL Lymphocytes # (Auto) 1.8 x10^3/uL Monocytes # (Auto) 0.4 x10^3/uL Eosinophils # (Auto) 0.1 x10^3/uL Basophils # (Auto) 0.0 x10^3/uL Sodium Level 142 mmol/L Potassium Level 4.2 mmol/L Chloride Level 106 mmol/L Carbon Dioxide Level 31 mmol/L Anion Gap 5 Blood Urea Nitrogen 8 mg/dL Creatinine 0.7 mg/dL Estimated GFR (Cockcroft-Gault) 101.6 Glucose Level 94 mg/dL Calcium Level 8.8 mg/dL PE: no exam A/P: RLQ pain - improved Constipation, GERD, h/o H. pylori (via lab test, treated three times) -no EGD, colon 2 years ago Weight loss, decreased PO intake w/ dental extractions -- Await SBS. If unrevealing, ADAT and look to MENG DUGAN Sep 19, 2017 11:39
--- NOTE | 2017-09-19 12:27 | RAD ---
Fluoroscopic small bowel series 09/19/2017 Clinical indication: Abdominal pain. Comparison: CT abdomen and pelvis 09/17/2017, 09/11/2017 Findings: Patient self-administered positive oral contrast with transit into the stomach and proximal soft small bowel medially postingestion. At 20 minutes into the study, contrast opacifies multiple nondilated loops of small bowel. Contrast reaches the ascending colon 3 hours into the study. Impression: No radiographic evidence of small bowel obstruction.
[2017-09-19] MEDS: DOCUSATE SODIUM 100 MG CAPSULE. PO SCH (12:35)
[2017-09-19] MEDS: tiZANidine 4 MG TABLET. PO SCH ×3 (12:35→17:00)
[2017-09-19] MEDS: traMADol 50 MG TABLET PO SCH ×3 (12:36→17:00)
[2017-09-19] MEDS: PHENAZOPYRIDINE 200 MG TABLET. PO SCH ×2 (12:36→20:18)
[2017-09-19] MEDS: HYOSCYAMINE ER 0.375 MG TAB.ER.12H PO SCH (12:37)
[2017-09-19] MEDS: POLYETHYLENE GLYCOL 3350 17 GM PACKET. PO SCH (12:37)
[2017-09-19] MEDS: OXYBUTYNIN CHLORIDE 5 MG TABLET PO SCH (12:40)
[2017-09-19] MEDS: MAGNESIUM HYDROXIDE 2,400 MG/30 ML ORAL.SUSP. PO SCH (12:45)
[2017-09-19] MEDS: ENOXAPARIN 30 MG/0.3 ML SYRINGE. SQ SCH (12:46)
[2017-09-19 15:00] VITALS: BP 120/76
[2017-09-19 19:59] VITALS: BP 120/87
--- NOTE | 2017-09-20 19:08 | DS ---
DATE OF DISCHARGE: 09/19/2017 CHIEF COMPLAINT: Right lower quadrant abdominal pain. HOSPITAL COURSE: The patient is a 67-year-old woman who presented with abdominal pain, especially in her right lower quadrant. CT was consistent with constipation, although IBS or IBD could not be ruled out. GI consult was obtained. She received bowel regimen with good results. A small bowel follow through was obtained as well, which did not show any significant findings. She did have some pelvic pain and dysuria due to chronic interstitial cystitis. She was continued on antispasmodics for this and will follow up with her urologist on an outpatient basis. UA was negative for signs of infection. PHYSICAL EXAMINATION: VITAL SIGNS: Blood pressure of 117/87, pulse 74, respiratory rate 18. GENERAL: Alert and oriented, no acute distress. LUNGS: Clear. HEART: Regular rate and rhythm, no murmurs. ABDOMEN: Normal bowel sounds, soft, nontender. EXTREMITIES: No edema. DISCHARGE DATE: 09/19/2017. DISCHARGE DIAGNOSES: Constipation, chronic interstitial cystitis. DISCHARGE DISPOSITION: home DISCHARGE CONDITION: improved DISCHARGE MEDICATIONS: Please refer to MAR. DISCHARGE INSTRUCTIONS: The patient will follow up with her PCP in 1-2 weeks. CARISSA OLIVER MD DR: [email or web address]/nts JOB#: [id number] / [id number] LIANG Diego MD MTDD
== END 2017-09-19 19:00 | disposition home or self-care (01) | DRG 690 ==
LOC: ER 19:31 → 5 SOUTH 21:50
PROVIDERS: ADMIT Internal Medicine; ATTEND Internal Medicine
DX: N30.10 Interstitial cystitis (chronic) without hematuria (principal); E86.0 Dehydration; K59.00 Constipation, unspecified; K58.1 Irritable bowel syndrome with constipation; J45.20 Mild intermittent asthma, uncomplicated; K21.9 Gastro-esophageal reflux disease without esophagitis; K37 Unspecified appendicitis; Z82.49 Family history of ischemic heart disease and other diseases of the circulatory system; Z86.19 Personal history of other infectious and parasitic diseases; Z90.710 Acquired absence of both cervix and uterus; Z88.1 Allergy status to other antibiotic agents; Z91.09 Other allergy status, other than to drugs and biological substances; Z98.51 Tubal ligation status
CPT/HCPCS: 36415; 74177; 74250; 80048; 80053; 81001; 83605; 83690; 85025; 87086; J0690; J0696; J1650; J2270; J2405; J7030; Q9967; 99285-25

== ENCOUNTER → 2017-10-22 | Outpatient (CLI) | payer MEDICARE ==
[~2017-10-22] MED LIST changes: +HYOS0.3715 PO; +OMEP40CA5 PO; +OXYB10TA7 PO; +PHEN-318 PO; +POLY17PO29 PO; +RANI300T3 PO; +TIZA4TAB PO; +TRAM50TA PO
[2017-10-22 15:15] LABS: BASO % 0 % (0-3); EOS % 1 % (0-3); HEMATOCRIT 37.8 % (36.0-47.0); HEMOGLOBIN 11.9 g/dL (12.0-15.5); LYMPH # 1.6 x10^3/uL (1.0-4.8); LYMPH % 35 % (24-48); MEAN CORPUSCULAR HEMOGLOBIN 27 pg (25-35); MEAN CORPUSCULAR HGB CONC 32 g/dL (31-37); MEAN CORPUSCULAR VOLUME 87 fL (79-100); MONO % 9 % (0-9); NEUT % 55 % (31-73); PLATELET COUNT 220 x10^3/uL (140-400); RED BLOOD COUNT 4.37 x10^6/uL (3.50-5.40); RED CELL DISTRIBUTION WIDTH 14.1 % (11.5-14.5); WHITE BLOOD COUNT 4.6 x10^3/uL (4.0-11.0)
[2017-10-22 15:18] LABS: BILIRUBIN,URINE NEGATIVE (NEG); GLUCOSE,URINE NEGATIVE (NEG); PROTEIN,URINE NEGATIVE (NEG-TRACE); UROBILINOGEN,URINE 0.2 mg/dL (0.2 mg/dL)
[2017-10-22 15:35] LABS: BACTERIA,URINE 0 /HPF (0-FEW); RBC,URINE 0 /HPF (0-2); SQUAMOUS EPITHELIAL CELL,UR FEW /LPF; WBC,URINE OCC /HPF (0-4)
== END | disposition home or self-care (01) ==
LOC: LAB 14:48
PROVIDERS: ATTEND Internal Medicine Cardiovascular Disease
DX: N39.0 Urinary tract infection, site not specified (principal)
CPT/HCPCS: 36415; 81001; 85025; 85651; 87086

== ENCOUNTER → 2019-03-17 | Outpatient (CLI) | payer MEDICARE ==
--- NOTE | 2019-03-17 11:00 | KCIC ---
Bone mineral density study dated 03/17/2019. Indication: Postmenopausal screening. Findings: Lower lumbar spine: BMD (g/cm2): Total L1-L4.......... 1.003. . T-Score: Total L1-L4.................... -0.4. Z-Score: Total L1-L4 ................... 0.7. Left Hip: BMD (g/cm2): Total .......... 0.866. . T-Score: Total .................... -0.6. Z-Score: Total ................... -0.0. World Health Organization criteria for BMD interpretation classify patients as Normal (T-score at or above -1.0), Osteopenic (T-score between -1.0 and -2.5), or Osteoporotic (T-score at or below -2.5). Impression: According to the World Health Organization, bone mineral density values are within the range of normal. Electronically signed by: Roderick Rosario MD (03/17/2019 10:58 AM) [id number]
== END | disposition home or self-care (01) ==
LOC: KCIC DEXA 10:22
PROVIDERS: ATTEND Internal Medicine Cardiovascular Disease
DX: Z13.820 Encounter for screening for osteoporosis (principal); E55.9 Vitamin D deficiency, unspecified; N95.9 Unspecified menopausal and perimenopausal disorder
CPT/HCPCS: 77080

== ENCOUNTER 2019-05-16 11:04 | Emergency (ER) | payer MEDICARE ==
[~2019-05-16] VITALS: Ht 154.9 cm; Wt 47.6 kg
[2019-05-16] MEDS ORDERED: MORPHINE SULFATE 10 MG/ML VIAL. IV ONE (11:45)
[2019-05-16] MEDS ORDERED: diazePAM 5 MG TABLET PO ONE (11:45)
[2019-05-16 11:51] LABS: BASO % 1 % (0-3); EOS # 0.1 x10^3/uL (0.0-0.7); EOS % 3 % (0-3); HEMATOCRIT 34.2 % (36.0-47.0); HEMOGLOBIN 10.8 g/dL (12.0-15.5); LYMPH # 1.2 x10^3/uL (1.0-4.8); LYMPH % 35 % (24-48); MEAN CORPUSCULAR HEMOGLOBIN 28 pg (25-35); MEAN CORPUSCULAR HGB CONC 32 g/dL (31-37); MEAN CORPUSCULAR VOLUME 87 fL (79-100); MONO # 0.2 x10^3/uL (0.0-1.1); MONO % 7 % (0-9); NEUT # 1.9 x10^3/uL (1.8-7.7); NEUT % 55 % (31-73); PLATELET COUNT 184 x10^3/uL (140-400); RED BLOOD COUNT 3.93 x10^6/uL (3.50-5.40); RED CELL DISTRIBUTION WIDTH 15.1 % (11.5-14.5); WHITE BLOOD COUNT 3.4 x10^3/uL (4.0-11.0)
[2019-05-16 11:52] LABS: PROTHROMBIN TIME PATIENT 12.9 SEC (11.7-14.0)
--- NOTE | 2019-05-16 11:59 | PHYS DOC ---
Past Medical History Past Medical History: Asthma, GERD, Other Additional Past Medical Histor: muscle pain, interstitial cystitis Past Surgical History: Hysterectomy, Tubal ligation, Other Additional Past Surgical Histo: rectocele, "bladder stretched" Alcohol Use: Heavy Drug Use: None Adult General Chief Complaint Chief Complaint: WEAKNESS/GENERALIZED HPI HPI Patient is a 69 year old female with history of asthma, acid reflex, who presents to the ED today with multiple complaints. Patient states yesterday she was at the local library with the grandchildren, she states she took her purse placed it on her bilateral arms and laid on a table for roughly an hour sleeping. She states she woke up and her left arm was numb , she states she hit the arm to wake it up and it has been numb on and off since then. She states now she feels her left lateral neck is "tight". She states the pain is mild worse on range of motion. Denies anything specifically relieving her symptoms. Review of Systems Review of Systems Constitutional: Denies fever or chills [] Eyes: Denies change in visual acuity, redness, or eye pain [] HENT: Denies nasal congestion or sore throat [] Respiratory: Denies cough or shortness of breath [] Cardiovascular: No additional information not addressed in HPI [] GI: Denies abdominal pain, nausea, vomiting, bloody stools or diarrhea [] : Denies dysuria or hematuria [] Musculoskeletal: Reports left upper extremity pain, left lateral neck tightness, left upper extremity numbness Integument: Denies rash or skin lesions [] Neurologic: Denies headache, focal weakness or sensory changes [] Endocrine: Denies polyuria or polydipsia [] All other systems were reviewed and found to be within normal limits, except as documented in this note. Current Medications Current Medications Current Medications Medications (Trade) Dose Ordered Sig/Mikie Start Time Stop Time Status Last Admin Dose Admin Diazepam (Valium) 5 mg 1X ONCE 05/16/19 11:45 05/16/19 11:46 DC 05/16/19 12:18 5 MG Morphine Sulfate (Morphine Sulfate) 5 mg 1X ONCE 05/16/19 11:45 05/16/19 11:46 DC 05/16/19 12:18 5 MG Allergies Allergies Allergies Coded Allergies Type Severity Reaction Last Updated Verified levofloxacin Allergy Intermediate Nausea and Vomiting 09/11/17 Yes ciprofloxacin Allergy Unknown Rash 05/16/19 Yes lactose Adverse Reaction Severe 09/18/17 Yes Physical Exam Physical Exam Constitutional: Well developed, well nourished, no acute distress, non-toxic appearance. [] HENT: Normocephalic, atraumatic, bilateral external ears normal, oropharynx moist, no oral exudates, nose normal. [] Eyes: PERRLA, EOMI, conjunctiva normal, no discharge. [] Neck: Normal range of motion, no tenderness, supple, no stridor. [] Cardiovascular:Heart rate regular rhythm, no murmur [] Lungs & Thorax: Bilateral breath sounds clear to auscultation [] Abdomen: Bowel sounds normal, soft, no tenderness, no masses, no pulsatile masses. [] Skin: Warm, dry, no erythema, no rash. [] Back: No tenderness, no CVA tenderness. [] Extremities: No tenderness, no cyanosis, no clubbing, ROM intact, no edema. [] Neurologic: Alert and oriented X 3, normal motor function, normal sensory function, no focal deficits noted. [] Psychologic: Affect normal, judgement normal, mood normal. [] Current Patient Data Vital Signs Vital Signs Date Time Temp Pulse Resp B/P (MAP) Pulse Ox O2 Delivery O2 Flow Rate FiO2 05/16/19 11:10 98.1 64 16 104/67 (79) 96 Room Air 98.1 Lab Values Laboratory Tests Test 05/16/19 11:25 05/16/19 11:40 White Blood Count 3.4 x10^3/uL (4.0-11.0) L Red Blood Count 3.93 x10^6/uL (3.50-5.40) Hemoglobin 10.8 g/dL (12.0-15.5) L Hematocrit 34.2 % (36.0-47.0) L Mean Corpuscular Volume 87 fL (79-100) Mean Corpuscular Hemoglobin 28 pg (25-35) Mean Corpuscular Hemoglobin Concent 32 g/dL (31-37) Red Cell Distribution Width 15.1 % (11.5-14.5) H Platelet Count 184 x10^3/uL (140-400) Neutrophils (%) (Auto) 55 % (31-73) Lymphocytes (%) (Auto) 35 % (24-48) Monocytes (%) (Auto) 7 % (0-9) Eosinophils (%) (Auto) 3 % (0-3) Basophils (%) (Auto) 1 % (0-3) Neutrophils # (Auto) 1.9 x10^3/uL (1.8-7.7) Lymphocytes # (Auto) 1.2 x10^3/uL (1.0-4.8) Monocytes # (Auto) 0.2 x10^3/uL (0.0-1.1) Eosinophils # (Auto) 0.1 x10^3/uL (0.0-0.7) Basophils # (Auto) 0.0 x10^3/uL (0.0-0.2) Prothrombin Time 12.9 SEC (11.7-14.0) Prothrombin Time INR 1.0 (0.8-1.1) PTT 25 SEC (24-38) Sodium Level 140 mmol/L (136-145) Potassium Level 4.0 mmol/L (3.5-5.1) Chloride Level 103 mmol/L (98-107) Carbon Dioxide Level 29 mmol/L (21-32) Anion Gap 8 (6-14) Blood Urea Nitrogen 11 mg/dL (7-20) Creatinine 1.0 mg/dL (0.6-1.0) Estimated GFR (Cockcroft-Gault) 66.9 BUN/Creatinine Ratio 11 (6-20) Glucose Level 114 mg/dL (70-99) H Calcium Level 8.9 mg/dL (8.5-10.1) Magnesium Level 1.9 mg/dL (1.8-2.4) Total Bilirubin 0.3 mg/dL (0.2-1.0) Aspartate Amino Transferase (AST) 17 U/L (15-37) Alanine Aminotransferase (ALT) 18 U/L (14-59) Alkaline Phosphatase 51 U/L (46-116) Creatine Kinase 97 U/L (26-192) Creatine Kinase MB (Mass) 1.3 ng/mL (0.0-3.6) Creatine Kinase MB Relative Index 1.3 % (0-4) Troponin I Quantitative < 0.017 ng/mL (0.000-0.055) LP-Teb-R-Type Natriuretic Peptide 48 pg/mL (0-124) Total Protein 7.1 g/dL (6.4-8.2) Albumin 3.5 g/dL (3.4-5.0) Albumin/Globulin Ratio 1.0 (1.0-1.7) Urine Opiates Screen Neg (NEG) Urine Methadone Screen Neg (NEG) Urine Barbiturates Neg (NEG) Urine Phencyclidine Screen Neg (NEG) Urine Amphetamine/Methamphetamine Neg (NEG) Urine Benzodiazepines Screen Neg (NEG) Urine Cocaine Screen Neg (NEG) Urine Cannabinoids Screen Neg (NEG) Urine Ethyl Alcohol Neg (NEG) Laboratory Tests 05/16/19 11:25 Laboratory Tests 05/16/19 11:25 EKG EKG 11:[address] Tracey sinus rhythm HR 57 no STEMI[] Radiology/Procedures Radiology/Procedures []PROCEDURE: CERVICAL SPINE 2-3V Examination: 2 views of the cervical spine HISTORY: History of left upper abdomen pain, weakness, numbness Comparison: None available FINDINGS: The cervical vertebral body heights are maintained. No evidence of listhesis. Moderate intervertebral disc height loss identified at C6-C7 vertebral levels with small anterior osteophyte formation. The facets are well aligned. The spinolaminar line is maintained. No evidence of prevertebral soft tissue swelling identified. IMPRESSION: 1. Moderate degenerative changes cervical spine particularly at C6-C7 vertebral level. Electronically signed by: Refugio Hopkins MD (05/16/2019 12:14 PM) [facility] DICTATED and SIGNED BY: REFUGIO HOPKINS MD DATE: 05/16/19 1214 PROCEDURE: PORTABLE CHEST 1V EXAM: CHEST 1 VIEW History: Generalized weakness COMPARISON: 05/26/2013 TECHNIQUE: Single portable radiograph of the chest FINDINGS: The cardiac silhouette is unremarkable. The lungs are clear bilaterally. The costophrenic sulci are clear and well demarcated. IMPRESSION: No radiographic evidence of an acute cardiopulmonary process. Electronically signed by: Refugio Hopkins MD (05/16/2019 12:16 PM) [facility] DICTATED and SIGNED BY: REFUGIO HOPKINS MD DATE: 05/16/19 1216 PROCEDURE: CT HEAD WO CONTRAST CT HEAD INDICATION: Left approximately numbness COMPARISON: None Available. Exposure: One or more of the following individualized dose reduction techniques were utilized for this examination: 1. Automated exposure control 2. Adjustment of the mA and/or kV according to patient size 3. Use of iterative reconstruction technique TECHNIQUE: 5 mm contiguous axial images were obtained from the skull base to the vertex in both bone and soft tissue algorithm. FINDINGS: No abnormal attenuation within the brain parenchyma. No evidence of acute intracranial hemorrhage. No extra-axial fluid collections. No mass effect or midline shift. Ventricular size is appropriate. Basal cisterns are patent. No fractures identified.Jimenez-white differentiation is preserved.Globes and orbits are within normal limits. Paranasal sinuses and mastoid air cells are clear. IMPRESSION: No acute intracranial findings. Electronically signed by: Refugio Hopkins MD (05/16/2019 12:06 PM) [facility] DICTATED and SIGNED BY: REFUGIO HOPKINS MD DATE: 05/16/19 2135 Course & Med Decision Making Course & Med Decision Making Pertinent Labs and Imaging studies reviewed. (See chart for details) This is a 69-year-old female patient who presents to the ED today with left upper extremity pain with numbness that began yesterday after laying on her left upper extremity for one hour at the local library. Cardiac workup as well as stroke workup was initiated to rule out anything acute cause. CT of the head is negative, lab work including troponin is negative, EKG was negative, chest x- ray is negative, cervical spine x-rays noted for DJD of the cervical spine. Patient's pain appears musculoskeletal. Will be discharged with a painting, diclofenac, cyclobenzaprine and Gabapentin. Instructed to try and ice and elevate the extremity. Instructed to follow-up with her own PCP in the course of this week or next week. Dragon Disclaimer Dragon Disclaimer This electronic medical record was generated, in whole or in part, using a voice recognition dictation system. Departure Departure Impression: Primary Impression: Cervical radiculopathy Disposition: HOME, SELF-CARE Condition: STABLE Referrals: ALCIDES LÓPEZ MD (PCP) Follow-up with your doctor in the course of this week Patient Instructions: Cervical Radiculopathy, [id number] Additional Instructions: You were evaluated in the emergency room for what appears to be musculoskeletal pain. We put you on medications, take them as prescribed. Follow-up with your doctor in the course of this week. Try to ice and elevate the affected extremity. Scripts Diclofenac Sodium (DICLOFENAC SODIUM) 50 Mg Tablet.dr 1 TAB PO BID, #60 TAB 0 Refills Prov: CARMEN TOMPKINS RHONDA 05/16/19 Gabapentin (GABAPENTIN ) 300 Mg Capsule 300 MG PO TID for NEUROGENIC PAIN, #20 CAP Prov: CARMEN TOMPKINS RHONDA 05/16/19 Cyclobenzaprine Hcl (CYCLOBENZAPRINE HCL) 10 Mg Tablet 1 TAB PO TID, #30 TAB Prov: CARMEN TOMPKINS RHONDA 05/16/19 NIHSS Stroke Scale NIH Stroke Scale: NIH Stroke Scale Response (Comments) Value Level of Consciousness: 0 Alert/Responsive 0 LOC Questions: 0 Answers both correctly 0 LOC Commands: 0 Performs both tasks 0 Best Gaze: 0 Normal 0 Visual: 0 No visual loss 0 Facial Palsy: 0 Normal, symmetrical 0 Motor - Left Arm 0 No drift 0 Motor - Right Arm 0 No drift 0 Motor - Left Leg 0 No drift 0 Motor: Right Leg 0 No drift 0 Limb Ataxia: 0 Absent 0 Sensory: 0 No loss 0 Best Language: 0 Normal 0 Dysathria: 0 Normal 0 Extinction and Inattention: 0 Normal 0 Total 0 CARMEN TOMPKINS RHONDA May 16, 2019 11:59
--- NOTE | 2019-05-16 12:04 | EKG ---
[facility] [address] [place] [address] Test Date: 2019-05-16 Test Time: 11:18:14 Pat Name: MICHA AUGUSTE Department: Room: Gender: F Director Case: : [id number] Requested By: CARMEN TOMPKINS Order Number: [id number] Reading MD: Measurements Intervals [place] Rate: 57 P: 73 [place]: 160 QRS: 32 QRSD: 82 T: 56 QT: 416 QTc: 408 Interpretive Statements SINUS RHYTHM LEFT ATRIAL ABNORMALITY QRS(T) CONTOUR ABNORMALITY CONSIDER ANTEROLATERAL MYOCARDIAL DAMAGE ABNORMAL ECG RI6.01 Unconfirmed report No previous ECG available for comparison
[2019-05-16 12:09] LABS: CALCIUM 8.9 mg/dL (8.5-10.1); GFR 66.9
[2019-05-16 12:09] LABS: AMPHETAMINE/METHAMPHETAMINE NEG (NEG); BARBITURATES NEG (NEG); BENZODIAZEPINES NEG (NEG); CANNABINOIDS NEG (NEG); COCAINE NEG (NEG); METHADONE NEG (NEG); OPIATES NEG (NEG); PHENCYCLIDINE NEG (NEG)
--- NOTE | 2019-05-16 12:09 | RAD ---
CT HEAD INDICATION: Left approximately numbness COMPARISON: None Available. Exposure: One or more of the following individualized dose reduction techniques were utilized for this examination: 1. Automated exposure control 2. Adjustment of the mA and/or kV according to patient size 3. Use of iterative reconstruction technique TECHNIQUE: 5 mm contiguous axial images were obtained from the skull base to the vertex in both bone and soft tissue algorithm. FINDINGS: No abnormal attenuation within the brain parenchyma. No evidence of acute intracranial hemorrhage. No extra-axial fluid collections. No mass effect or midline shift. Ventricular size is appropriate. Basal cisterns are patent. No fractures identified.Jimenez-white differentiation is preserved.Globes and orbits are within normal limits. Paranasal sinuses and mastoid air cells are clear. IMPRESSION: No acute intracranial findings. Electronically signed by: Refugio Hopkins MD (05/16/2019 12:06 PM) [facility]
[2019-05-16 12:14] LABS: ALBUMIN 3.5 g/dL (3.4-5.0); MAGNESIUM 1.9 mg/dL (1.8-2.4); TOTAL BILIRUBIN 0.3 mg/dL (0.2-1.0); TOTAL PROTEIN 7.1 g/dL (6.4-8.2)
--- NOTE | 2019-05-16 12:17 | RAD ---
Examination: 2 views of the cervical spine HISTORY: History of left upper abdomen pain, weakness, numbness Comparison: None available FINDINGS: The cervical vertebral body heights are maintained. No evidence of listhesis. Moderate intervertebral disc height loss identified at C6-C7 vertebral levels with small anterior osteophyte formation. The facets are well aligned. The spinolaminar line is maintained. No evidence of prevertebral soft tissue swelling identified. IMPRESSION: 1. Moderate degenerative changes cervical spine particularly at C6-C7 vertebral level. Electronically signed by: Refugio Hopkins MD (05/16/2019 12:14 PM) [facility]
--- NOTE | 2019-05-16 12:19 | RAD ---
EXAM: CHEST 1 VIEW History: Generalized weakness COMPARISON: 05/26/2013 TECHNIQUE: Single portable radiograph of the chest FINDINGS: The cardiac silhouette is unremarkable. The lungs are clear bilaterally. The costophrenic sulci are clear and well demarcated. IMPRESSION: No radiographic evidence of an acute cardiopulmonary process. Electronically signed by: Refugio Hopkins MD (05/16/2019 12:16 PM) [facility]
[2019-05-16] MEDS ORDERED: GABA300C18 PO (12:51)
[2019-05-16] MEDS ORDERED: DICL50TA4 PO (12:51)
[2019-05-16] MEDS ORDERED: CYCL10TA2 PO (12:51)
[2019-05-16 13:34] VITALS: BP 143/63
== END 2019-05-16 13:35 | disposition home or self-care (01) ==
LOC: ER 11:04
DX: M54.12 Radiculopathy, cervical region (principal); R53.1 Weakness; J45.909 Unspecified asthma, uncomplicated; K21.9 Gastro-esophageal reflux disease without esophagitis; F10.20 Alcohol dependence, uncomplicated; Y90.9 Presence of alcohol in blood, level not specified; Z88.1 Allergy status to other antibiotic agents; Z91.011 Allergy to milk products
CPT/HCPCS: 36415; 70450; 71045; 72040; 80053; 80307; 82553; 83735; 83880; 84484; 85025; 85610; 85730; 93005; 96374; 99285; J2270

== ENCOUNTER → 2020-04-08 | Outpatient (CLI) | payer MEDICARE ==
[~2020-04-08] MED LIST changes: +CYCL10TA2 PO; +DICL50TA4 PO; +GABA300C18 PO; +OMEP40CA45 PO; -OMEP40CA5 PO; -TIZA4TAB PO; +TIZA4TAB2 PO
[2020-04-08 12:12] LABS: BILIRUBIN,URINE NEGATIVE (NEG); CLARITY,URINE CLEAR; NITRITE,URINE NEGATIVE (NEG); PROTEIN,URINE NEGATIVE (NEG-TRACE); UROBILINOGEN,URINE 0.2 mg/dL (0.2 mg/dL)
[2020-04-08 12:19] LABS: COLOR,URINE YELLOW; SQUAMOUS EPITHELIAL CELL,UR MOD /LPF
[2020-04-08 12:20] LABS: BACTERIA,URINE 0 /HPF (0-FEW)
== END | disposition home or self-care (01) ==
LOC: LAB 11:45
PROVIDERS: ATTEND Internal Medicine Cardiovascular Disease
DX: R82.79 Other abnormal findings on microbiological examination of urine (principal)
CPT/HCPCS: 81001; 87086

== ENCOUNTER 2021-12-31 11:08 | Emergency (ER) | payer MEDICARE ==
[~2021-12-31] VITALS: Ht 154.9 cm; Wt 48.1 kg
[~2021-12-31 11:08] MED LIST changes: +CYCL10TA19 PO; -CYCL10TA2 PO; -OMEP40CA45 PO; +OMEP40CA7 PO; +TIZA-75 PO; -TIZA4TAB2 PO
[2021-12-31] MEDS ORDERED: ONDANSETRON PF 4 MG/2 ML VIAL. IVP ONE (11:45)
[2021-12-31] MEDS ORDERED: MORPHINE SULFATE 2 MG/ML INJ. IVP ONE (11:45)
[2021-12-31] MEDS ORDERED: IV NORMAL SALINE 1000ML BAG 1,000 ML IV ONE (11:45)
[2021-12-31 12:08] LABS: BASO % 1 % (0-3); EOS % 1 % (0-3); HEMATOCRIT 36.7 % (36.0-47.0); HEMOGLOBIN 11.3 g/dL (12.0-15.5); LYMPH # 1.4 x10^3/uL (1.0-4.8); LYMPH % 39 % (24-48); MEAN CORPUSCULAR HEMOGLOBIN 27 pg (25-35); MEAN CORPUSCULAR HGB CONC 31 g/dL (31-37); MEAN CORPUSCULAR VOLUME 88 fL (79-100); MONO # 0.2 x10^3/uL (0.0-1.1); MONO % 7 % (0-9); NEUT # 1.9 x10^3/uL (1.8-7.7); NEUT % 53 % (31-73); PLATELET COUNT 220 x10^3/uL (140-400); RED BLOOD COUNT 4.18 x10^6/uL (3.50-5.40); RED CELL DISTRIBUTION WIDTH 14.5 % (11.5-14.5); WHITE BLOOD COUNT 3.5 x10^3/uL (4.0-11.0)
[2021-12-31 12:16] LABS: CLARITY,URINE CLEAR; COLOR,URINE ORANGE
[2021-12-31 12:20] LABS: BACTERIA,URINE 0 /HPF (0-FEW)
[2021-12-31 12:21] LABS: INFLUENZA A PATIENT NEGATIVE (NEGATIVE); INFLUENZA B PATIENT NEGATIVE (NEGATIVE)
[2021-12-31 12:31] LABS: CALCIUM 8.5 mg/dL (8.5-10.1); GFR 66.5; POTASSIUM 3.7 mmol/L (3.5-5.1)
[2021-12-31 12:34] LABS: ALBUMIN 3.9 g/dL (3.4-5.0); TOTAL BILIRUBIN 0.4 mg/dL (0.2-1.0)
[2021-12-31] MEDS ORDERED: IOHEXOL 300 MG/ML 100ML VIAL. IV ONE (12:45)
--- NOTE | 2021-12-31 13:19 | RAD ---
CT ABDOMEN+PELVIS W History: Right lower quadrant pain. Comparison: CT abdomen and pelvis 09/17/2017 Technique: CT abdomen pelvis with intravenous contrast. Findings: The lung bases are clear. No pleural or pericardial effusion. The liver, gallbladder, and pancreas are unremarkable. A few punctate calcifications in the spleen co nsistent with granulomatous disease. The adrenal glands and kidneys are unremarkable. Partially decom pressed bladder without focal abnormality. Status post hysterectomy. No pelvic masses. The stomach is partially distended by ingested material. Small bowel is mostly decompressed. There is a partially visualized normal caliber appendix in the right lower quadrant. No evidence of acute migue endicitis. Prominent stool burden particularly in the cecum ascending and transverse colon. Mild sigm oid colon diverticulosis. No abdominopelvic free air or free fluid. Vasculature is unremarkable. No adenopathy. Soft tissues ar e within normal limits. Degenerative changes in the spine with mild anterolisthesis of L3 on L4. [place] sitional lumbosacral anatomy with sacralized L5. Impression: 1. No acute findings in the abdomen and pelvis. Partially visualized normal caliber appendix. 2. Prominent colonic stool burden particularly at the cecum, ascending and transverse colon. ------ Exposure: One or more of the following individualized dose reduction techniques were utilized for thi s examination: 1. Automated exposure control 2. Adjustment of the mA and/or kV according to patient size 3. Use of iterative reconstruction technique. Electronically signed by: Yohan Simpson MD (12/31/2021 1:17 PM) [id number]
[2021-12-31] MEDS ORDERED: PSYL0.5215 PO (13:53)
[2021-12-31] MEDS ORDERED: MAGN296S68 PO (13:53)
--- NOTE | 2021-12-31 13:53 | PHYS DOC ---
Past Medical History Past Medical History: Asthma, GERD, Other Additional Past Medical Histor: muscle pain, interstitial cystitis Past Surgical History: Hysterectomy, Tubal ligation, Other Additional Past Surgical Histo: rectocele, "bladder stretched"1999 Smoking Status: Never Smoker Alcohol Use: Heavy Drug Use: None Adult General Chief Complaint Chief Complaint: ABDOMINAL PAIN HPI HPI Patient is a 71 year old female presents with abdominal pain that started last night. Pain is crampy in nature and has been intermittent. It is worse in the right lower quadrant and suprapubic area, she said this does seem to radiate down towards the rectal region. She has not had any traik constipation and denies any diarrhea. No blood in her stools. No upper abdominal pain, nausea or vomiting present either. She has not had any fever cough or chest pain. No recent illness or injury. Review of Systems Review of Systems Constitutional: Denies fever Eyes: Denies change in visual acuity or eye pain HENT: Denies sore throat Respiratory: Denies shortness of breath Cardiovascular: Denies chest pain GI: Reports abd pain : Denies dysuria Musculoskeletal: Denies back or extremity injury Integument: Denies rash or skin lesions Neurologic: Denies headache, focal weakness or sensory changes All other systems were reviewed and found to be within normal limits, except as documented in this note. Current Medications Current Medications Current Medications Medications (Trade) Dose Ordered Sig/Mikie Start Time Stop Time Status Last Admin Dose Admin Iohexol (Omnipaque 300 Mg/ml) 75 ml 1X ONCE 12/31/21 12:45 12/31/21 12:46 DC 12/31/21 12:51 75 ML Morphine Sulfate (Morphine Sulfate) 2 mg 1X ONCE 12/31/21 11:45 12/31/21 11:46 DC 12/31/21 11:53 2 MG Ondansetron HCl (Zofran) 4 mg 1X ONCE 12/31/21 11:45 12/31/21 11:46 DC 12/31/21 11:52 4 MG Sodium Chloride 1,000 ml @ 1,000 mls/hr 1X ONCE 12/31/21 11:45 12/31/21 12:44 DC 12/31/21 11:52 1,000 MLS/HR Allergies Allergies Allergies Coded Allergies Type Severity Reaction Last Updated Verified ciprofloxacin Allergy Intermediate Rash 05/16/19 Yes lactose Adverse Reaction Intermediate Patient is lactose-intolerant 05/16/19 Yes levofloxacin Adverse Reaction Intermediate Nausea and Vomiting 05/16/19 Yes Physical Exam Physical Exam Constitutional: Well developed, well nourished, no acute distress, non-toxic appearance. HENT: Normocephalic, atraumatic, bilateral external ears normal, mucosa moist, nose normal. Eyes: EOMI, conjunctiva normal, no discharge. Neck: Normal range of motion, supple, no stridor, no meningeal signs. Cardiovascular: Regular rate and rhythm Lungs & Thorax: Bilateral breath sounds clear to auscultation Abdomen: Soft, mild bilateral lower quadrant tenderness, no obvious masses Skin: Warm, dry, no erythema, no rash. Extremities: No tenderness, no cyanosis, no clubbing, ROM intact, no edema. Neurologic: Alert and oriented, normal motor function, normal sensory function, no focal deficits noted. Psychologic: Affect normal, judgement normal, mood normal. Current Patient Data Vital Signs Vital Signs Date Time Temp Pulse Resp B/P (MAP) Pulse Ox O2 Delivery O2 Flow Rate FiO2 12/31/21 11:53 16 97 12/31/21 11:08 98.8 88 118/76 (90) Room Air 98.8 Lab Values Laboratory Tests Test 12/31/21 11:20 12/31/21 11:38 12/31/21 11:54 Urine Collection Type Unknown Urine Color [place] Urine Clarity Clear Urine pH (<5.0-8.0) Urine Specific [place] (1.000-1.030) Urine Protein mg/dL (NEG-TRACE) Urine Glucose (UA) 100 mg/dL (NEG) Urine Ketones (Stick) mg/dL (NEG) Urine Blood (NEG) Urine Nitrite (NEG) Urine Bilirubin (NEG) Urine Urobilinogen Dipstick mg/dL (0.2 mg/dL) Urine Leukocyte Esterase (NEG) Urine RBC 6-10 /HPF (0-2) Urine WBC 5-10 /HPF (0-4) Urine Squamous Epithelial Cells Occ /LPF Urine Bacteria 0 /HPF (0-FEW) Urine Mucus Slight /LPF White Blood Count 3.5 x10^3/uL (4.0-11.0) L Red Blood Count 4.18 x10^6/uL (3.50-5.40) Hemoglobin 11.3 g/dL (12.0-15.5) L Hematocrit 36.7 % (36.0-47.0) Mean Corpuscular Volume 88 fL (79-100) Mean Corpuscular Hemoglobin 27 pg (25-35) Mean Corpuscular Hemoglobin Concent 31 g/dL (31-37) Red Cell Distribution Width 14.5 % (11.5-14.5) Platelet Count 220 x10^3/uL (140-400) Neutrophils (%) (Auto) 53 % (31-73) Lymphocytes (%) (Auto) 39 % (24-48) Monocytes (%) (Auto) 7 % (0-9) Eosinophils (%) (Auto) 1 % (0-3) Basophils (%) (Auto) 1 % (0-3) Neutrophils # (Auto) 1.9 x10^3/uL (1.8-7.7) Lymphocytes # (Auto) 1.4 x10^3/uL (1.0-4.8) Monocytes # (Auto) 0.2 x10^3/uL (0.0-1.1) Eosinophils # (Auto) 0.0 x10^3/uL (0.0-0.7) Basophils # (Auto) 0.0 x10^3/uL (0.0-0.2) Sodium Level 142 mmol/L (136-145) Potassium Level 3.7 mmol/L (3.5-5.1) Chloride Level 103 mmol/L (98-107) Carbon Dioxide Level 27 mmol/L (21-32) Anion Gap 12 (6-14) Blood Urea Nitrogen 15 mg/dL (7-20) Creatinine 1.0 mg/dL (0.6-1.0) Estimated GFR (Cockcroft-Gault) 66.5 BUN/Creatinine Ratio 15 (6-20) Glucose Level 101 mg/dL (70-99) H Calcium Level 8.5 mg/dL (8.5-10.1) Total Bilirubin 0.4 mg/dL (0.2-1.0) Aspartate Amino Transferase (AST) 13 U/L (15-37) L Alanine Aminotransferase (ALT) 30 U/L (14-59) Alkaline Phosphatase 35 U/L (46-116) L Total Protein 8.0 g/dL (6.4-8.2) Albumin 3.9 g/dL (3.4-5.0) Albumin/Globulin Ratio 1.0 (1.0-1.7) Lipase 297 U/L (73-393) Influenza Type A Antigen Negative (NEGATIVE) Influenza Type B Antigen Negative (NEGATIVE) SARS-CoV-2 Antigen (Rapid) Negative (NEGATIVE) Laboratory Tests 12/31/21 11:38 Laboratory Tests 12/31/21 11:38 EKG EKG [] Radiology/Procedures Radiology/Procedures [] Impressions: PATIENT: MICHA AUGUSTE JACCOUNT: [id number]#: [id number] : 1950 LOCATION: ER AGE: 71 SEX: F EXAM STATUS: REG ER ORD. PHYSICIAN: MICH KLEIN MD REASON: RLQ pain PROCEDURE: CT ABD PELV W/ IV CONTRST ONLY CT ABDOMEN+PELVIS W History: Right lower quadrant pain. Comparison: CT abdomen and pelvis 09/17/2017 Technique: CT abdomen pelvis with intravenous contrast. Findings: The lung bases are clear. No pleural or pericardial effusion. The liver, gallbladder, and pancreas are unremarkable. A few punctate calcifications in the spleen consistent with granulomatous disease. The adrenal glands and kidneys are unremarkable. Partially decompressed bladder without foca l abnormality. Status post hysterectomy. No pelvic masses. The stomach is partially distended by ingested material. Small bowel is mostly decompressed. There is a partially visualized normal caliber appendix in the right lower quadrant. No evidence of acute appendicitis. Prominent stool burden particularly in the cecum ascending and transverse colon. Mild sigmoid colon diverticulosis. No abdominopelvic free air or free fluid. Vasculature is unremarkable. No adenopathy. Soft tissues are within normal limits. Degenerative changes in the spine with mild anterolisthesis of L3 on L4. Transitional lumbosacral anatomy with sacralized L5. Impression: 1. No acute findings in the abdomen and pelvis. Partially visualized normal caliber appendix. 2. Prominent colonic stool burden particularly at the cecum, ascending and transverse colon. ------ Exposure: One or more of the following individualized dose reduction techniques were utilized for this examination: 1. Automated exposure control 2. Adjustment of the mA and/or kV according to patient size 3. Use of iterative reconstruction technique. Electronically signed by: Yohan Anders MD (12/31/2021 1:17 PM) [id number] DICTATED and SIGNED BY: YOHAN ANDERS MD DATE: 12/31/21 [id number] Course & Med Decision Making Course & Med Decision Making Pertinent Labs and Imaging studies reviewed. (See chart for details) [] This is a 71-year-old female with lower abdominal pain. CT of the abdomen pelvis is indicative of constipation but no other acute pathology is noted. Labs are unrevealing. We will give the patient a prescription for a bottle of magnesium citrate and for Metamucil, she is stable for discharge at this time. Dragon Disclaimer Dragon Disclaimer This electronic medical record was generated, in whole or in part, using a voice recognition dictation system. Departure Departure Impression: Primary Impression: Abdominal pain Additional Impression: Constipation Disposition: 01 HOME / SELF CARE / HOMELESS Condition: STABLE Referrals: LIANG CARNEY MD (PCP) Patient Instructions: Abdominal Pain, Constipation, Adult Scripts Psyllium Husk (METAMUCIL) 0.52 Gm Capsule 2 CAP PO BID for 30 Days, #120 CAP 0 Refills Prov: MICH KLEIN MD 12/31/21 Magnesium Citrate (MAGNESIUM CITRATE) 296 Ml Solution 296 ML PO ONCE, #296 ML Prov: MICH KLEIN MD 12/31/21 Problem Qualifiers MICH KLEIN MD Dec 31, 2021 13:53
[2021-12-31 14:01] VITALS: BP 121/67
== END 2021-12-31 14:10 | disposition home or self-care (01) ==
LOC: ER 11:08
DX: K59.00 Constipation, unspecified (principal); R10.31 Right lower quadrant pain; K57.30 Diverticulosis of large intestine without perforation or abscess without bleeding; K21.9 Gastro-esophageal reflux disease without esophagitis; J45.909 Unspecified asthma, uncomplicated; Z98.51 Tubal ligation status; Z90.710 Acquired absence of both cervix and uterus; Z88.1 Allergy status to other antibiotic agents; Z91.011 Allergy to milk products; Z20.822 Contact with and (suspected) exposure to COVID-19
CPT/HCPCS: 36415; 74177; 80053; 81001; 83690; 85025; 87428; 96361; 96374; 96375; 99285; J2270; J2405; J7030; Q9967